=== PATIENT | male | born 1980 | race Caucasian/White ===

== ENCOUNTER → 2020-10-11 16:12 | Outpatient (BNVA) | payer OTHER, SELFPAY | PROVIDERS: Family Provider Family Medicine; Visit Provider Surgery | DX: K64.9 Unspecified hemorrhoids (principal); Z86.010 Personal history of colon polyps | CPT/HCPCS: 87635 ==

== ENCOUNTER 2020-10-15 05:43 | Day surgery (SDC) | payer OTHER, SELFPAY ==
[2020-10-12 11:54] VITALS: BMI 33.5
[2020-10-15 06:27] VITALS: BP 90/63; PULSE 71; RESP 18; TEMP 36.5; O2SAT 97
[2020-10-15] MEDS: sodium chloride 0.9% 1,000 ML 30 ML IV (06:46)
--- NOTE | 2020-10-15 06:50 | ANES.PREANE2 ---
Pre-Anesthetic Assessment Pre-Anesthetic Assessment: Height/Weight: Height 1.8 m Weight 108.862 kg Temp Pulse Resp BP Pulse Ox 97.7 F 71 18 90/63 97 10/15/20 06:27 10/15/20 06:27 10/15/20 06:27 10/15/20 06:27 10/15/20 06:27 Preop Diagnosis: diagnostic Proposed Procedure: Operation Date: 10/15/20 07:00 Proposed Procedures p Colonoscopy [id number] Z86.010 K64.9(Not Applicable) - Parker Maza MD s Hemorroidectomy(Not Applicable) - Parker Maza MD s Perirectal Abscess Excision(Not Applicable) - Parker Maza MD Familial anesthetic complications: NOne Was Beta Jamarcus taken within 24 hours: Yes Last intake: Intake Last Liquid Date 10/15/20 Last Liquid Time 22:00 Last Solid Date 10/14/20 Last Solid Time 08:30 Social: Social History: No alcohol and No tobacco Exam: Pre-Anes Outpt Exam: alert, oriented x 3, clear to auscultation bilaterally and regular rate & rhythm Airway: Cervical ROM: WNL MP: 3 Dentition: Full Pulmonary: Pulmonary: Sleep apnea CV/HEM: CV/HEM: Afib and CHF Comments: EF 35% 1 month ago Pacer/ICD Hx Mural thrombus No anticoagulation, watchman in place Anesthetic Plan: ASA status: 4 Anesthesia: MAC Risk of > 500 ml blood loss (7ml/kg in children): No Meds/Allergies Current Medications: Current Medications Generic Name Dose Route Start Last Admin Trade Name Freq PRN Reason Stop Dose Admin Sodium Chloride 1,000 mls @ 30 ml s/hr 10/15/20 06:15 10/15/20 06:46 Sodium Chloride 0.9% IV 10/16/20 06:14 30 mls/hr .Q24H KIM Administration PFSH Anesthesia PFSH: Medical History (Updated 10/05/20 @ 18:14 by Parker Maza MD) A-fib Anxiety CHF (congestive heart failure) Colon polyps Gout Hemorrhoids History of pacemaker Mural thrombus of heart Sleep apnea Surgical History (Updated 10/05/20 @ 10:36 by Parker Maza MD) History of colonoscopy with polypectomy (~2014) History of esophagogastroduodenoscopy (EGD) (~2014) History of nasal septoplasty (~2007) ICD (implantable cardioverter-defibrillator) in place (~2016) S/P laparoscopic sleeve gastrectomy (~2016) Family History (Updated 10/05/20 @ 10:15 by Yani Soriano RN) Denies family history of Anesthesia complication Bleeding disorder Data Anesthesia Cardiac Studies: No Data to Display
--- NOTE | 2020-10-15 07:40 | W.PM.OPSUD ---
Surgery/Procedure H&P Update DATE OF PROCEDURE: October 15, 2020 DATE H&P PERFORMED: 10/05/20 H&P UPDATE INFORMATION: I have reviewed H&P completed within last 30 days, I have examined patient prior to procedure and No changes to prior documentation PREOP DIAGNOSIS: diagnostic PLANNED PROCEDURE: Operation Date: 10/15/20 07:00 Proposed Procedures p Colonoscopy [id number] Z86.010 K64.9(Not Applicable) - Parker Maza MD s Hemorroidectomy(Not Applicable) - Parker Maza MD s Perirectal Abscess Excision(Not Applicable) - Parker Maza MD
[2020-10-15] MEDS: lidocaine 1% INJ 20 mL 10 ML INJECTION (08:42)
[2020-10-15 09:04] VITALS: BP 87/56; PULSE 65; RESP 16; TEMP 37.1; O2SAT 100
--- NOTE | 2020-10-15 09:05 | PM.OP ---
Operative Report Date of procedure: October 15, 2020 Pre-op Diagnosis: 1. History of colon polyps Pre-op Diagnosis: 2. Perianal mass 3. Hemorrhoids Post-op Diagnosis: 1. Normal colonoscopy 2. perianal cyst with draining sinus 3. Irritated grade 2 hemorrhoids Procedure Done: Colonoscopy past splenic flexure without biopsy Banding of hemorrhoid Excision of perianal cyst Procedure: The patient was taken to the operating room and placed in left lateral position under MAC a digital rectal exam revealed a small internal hemorrhoids. The colonoscope was introduced and advanced up to cecum with ileocecal valve and appendicular orifice was visualized. The colon prep was fair. Cecum: Normal Ascending colon: Normal Transverse colon: Normal Descending colon: Normal Sigmoid colon: Normal Rectum: Perianal cyst posterior location The colonoscope was withdrawn. The perianal area was prepped and draped in a sterile manner and the anoscope was introduced and a grade 2 hemorrhoid on the left lateral location was banded with the band applicator above the dentate line. Using a 15 blade, an elliptical incision was made around the perianal cyst which drained through a sinus opening in the posterior location, using electrocautery the subcutaneous tissue was divided there was significant inflammation and chronic scarring noted. The cyst was excised completely incorporating the opening of the draining sinus. Wound was irrigated with saline and interrupted 2-0 chromic sutures were placed. An Adaptic gauze was placed in the anal canal and the patient was transferred to recovery room in stable condition.
[2020-10-15 09:30] VITALS: BP 79/54; PULSE 71; RESP 18; O2SAT 98
[2020-10-15 09:52] VITALS: BP 79/53
[2020-10-15] MEDS: HYDROcodone-acetaminophen 5-325 mg Tablet 1 TAB PO (10:00)
[2020-10-15 10:04] VITALS: BP 86/48
--- NOTE | 2020-10-15 15:55 | ANE.PACU2 ---
Inpatient post-anesthesia follow up: Airway intact: Yes Vital signs: Temperature 98.7 F Pulse Rate 71 Respiratory Rate 18 Blood Pressure 86/48 Pulse Oximetry 98 Oxygen Delivery Me thod Room Air Oxygen Flow Rate 6 Fraction of Inspir ed Oxygen Hydration adequate: Yes Nausea and vomiting: No Pain level: 2 Mental status: Baseline
== END 2020-10-15 10:15 | disposition home or self-care (01) ==
PROVIDERS: PCP Family Medicine; Visit Provider Surgery
PROC: 0DJD8ZZ Inspection of Lower Intestinal Tract, Via Natural or Artificial Opening Endoscopic (ICD-10-PCS; CPT 45378; principal; 2020-10-15 07:00)
PROC: (CPT 45378; 2020-10-15 07:00)
PROC: (CPT 46040; 2020-10-15 07:00)
DX: Z86.010 Personal history of colon polyps (principal); K64.1 Second degree hemorrhoids; K62.89 Other specified diseases of anus and rectum; G47.30 Sleep apnea, unspecified; I48.91 Unspecified atrial fibrillation; I50.9 Heart failure, unspecified; F41.9 Anxiety disorder, unspecified; Z95.0 Presence of cardiac pacemaker; Z79.82 Long term (current) use of aspirin
CPT/HCPCS: 45378; 46221; 46922; 88304; C9290; J2704; J3010; J3490; J7030

== ENCOUNTER 2023-05-28 08:46 | Emergency (ER) | payer MEDICAID, SELFPAY ==
[2023-05-28 08:52] VITALS: BP 123/80; PULSE 80; RESP 16; TEMP 36.8; O2SAT 98; BMI 36.2
--- NOTE | 2023-05-28 09:17 | PC.PHAR ---
pt states he takes care of his own meds-pt fills medications at [facility] wp-ext med history didnt show [facility]-pt states he takes the medications entered-pt states he finished prednisone 20mg take 2 tabs daily for 5 days pt states finished 05/26/23-pt states only taking the medications entered notes are made in the pharmacy comments
[2023-05-28] MEDS: dexamethasone 10 mg/mL INJ IM (09:26)
[2023-05-28] MEDS: ketorolac 60 mg/2 mL INJ IM (09:28)
[2023-05-28] MEDS: orphenadrine 30 mg/mL Inj 2 mL 60 MG IM (09:30)
--- NOTE | 2023-05-28 10:04 | W.ED.BACK ---
HPI - Back Pain/Injury General: Chief Complaint: Back Pain/Injury Stated Complaint: back pain Time Seen by Provider: 05/28/23 08:58 Source: patient Mode of arrival: ambulatory History of Present Illness: 43 yo male presents complaining of back pain. Patient fell 2 weeks ago hit his right lower back he still having discomfort and he feels there is some swelling present. He was seen by his primary care doctor had x-rays done. No acute fracture on the x-ray presents here today with x-ray report in hand. He states he is advised if his symptoms do not improve to return to be seen in the emergency room. He had no saddle paresthesias no fecal incontinence or urinary retention. No subsequent injuries since the previous x-ray was taken. X-ray is in our synapse system and was reviewed today. MD elicited complaint: back pain Pertinent past history: prior back pain and recent trauma Onset (ago): week(s) (2) Timing: intermittent Severity: mild Quality: aching Location: left lower back Exacerbating factors: none Relieving factors: none Associated symptoms: Deny abdominal pain, arthralgias, chills, change in bowel habits, difficulty walking, dysuria, fatigue, fecal incontinence, fever(s), hematuria, myalgias, nausea, numbness, syncope, tingling/numbness/burning, urinary frequency, urinary urgency, vomiting or weakness Treatments prior to arrival: other medications Work related injury: No Review of Systems Const: Denies: fever(s), chills or fatigue Card: Denies: syncope Resp: Denies: dyspnea GI: Denies: abdominal pain, nausea, vomiting, fecal incontinence or change in bowel habits : Denies: flank pain, dysuria, urinary frequency, urinary urgency or hematuria Musc: Reports: back pain; Denies: extremity pain Neuro: Denies: difficulty walking PFS ED PFSH: Medical History A-fib Anxiety Biventricular heart failure Cardiomyopathy Most recent transesophageal echocardiogram on 12/31/2020-moderate LV dysfunction with moderate MR and mild TR. Moderate left knee enlargement. MRI and LGE suggestive of infiltrative cardiomyopathy. Biopsy negative for sarcoidosis, amyloid and genetic testing CHF (congestive heart failure) Colon polyps Gout Hemorrhoids History of pacemaker Hyperlipidemia Hypertension Insomnia Mural thrombus of heart Obesity CROW (obstructive sleep apnea) Has hypoglossal nerve stimulator HGNS Presence of Watchman left atrial appendage closure device Sleep apnea Surgical History History of colonoscopy with polypectomy (10/15/20) 2015 With banding of hemorrhoids History of epidermal inclusion cyst excision (10/15/20) Perianal History of esophagogastroduodenoscopy (EGD) (~2014) History of nasal septoplasty (~2007) Hx of gastric bypass ICD (implantable cardioverter-defibrillator) in place (~2016) Patient has [employer] MRI XT DR ICD. It is programmed for AAI/DDD S/P laparoscopic sleeve gastrectomy (~2016) Family History Father Diabetes Hypertension Cancer Mother Cancer Denies family history of CAD (coronary artery disease) Clotting disorder Dementia Chronic kidney disease (CKD) Suicide Anesthesia complication Bleeding disorder Lung disease Stroke Social History Smoking and tobacco status: never smoked Alcohol intake: never Substance/Drug Use: never Physical Exam Const: GENERAL APPEARANCE: cooperative and comfortable ORIENTATION/CONSCIOUSNESS: Yes awake, Yes oriented to person, Yes oriented to place and Yes oriented to time HENMT: COMMON NORMALS: normocephalic, atraumatic and hearing grossly normal bilaterally HEAD & SCALP: normocephalic and atraumatic Back/Pelvis: OTHER: Patellar tendon reflexes plus 2 out of 4. Dorsum plantar flexion strength is 5 of 5 straight leg raising test is negative sensation lower extremities unremarkable no saddle paresthesias. Extremity: COMMON NORMALS: normal to inspection, capillary refill normal, no clubbing, cyanosis or edema, no calf tenderness and no pedal edema Neuro: SENSORIUM/ORIENTATION: Yes oriented to person, Yes oriented to place and Yes oriented to time Skin: COMMON NORMALS: no rashes or lesions noted GENERAL SKIN EXAM: no rashes or lesions noted Course Vital Signs: Vital signs: Vital Signs Temperature 98.3 F 05/28/23 08:52 Pulse Rate 80 05/28/23 08:52 Respiratory Rate 16 05/28/23 08:52 Blood Pressure 123/80 05/28/23 08:52 Pulse Oximetry 98 05/28/23 08:52 Oxygen Delivery Dc thod Room Air 05/28/23 08:52 MDM - Back Pain/Injury Medical Decision Making Soft tissue injury patient relates that he feels like there is a sensation of swelling in the left lower back he refers to an area over the posterior superior iliac crest there is no ecchymosis maybe a slight bit of tissue fullness no induration. He has previously had x-rays he had the report and hand with him which were negative. Soft tissue steroid taper anti-inflammatories follow-up with primary care return if worsens. Medical Records I reviewed the patient's medical records. Labs I reviewed the patient's lab results. No radiology studies performed this visit Discharge Plan Discharge Patient Disposition: Home Clinical Impression: Strain of lumbar region Condition: Stable Prescriptions: New tizanidine 4 mg tablet 4 mg PO Q6H PRN (Reason: muscle spasticity) Qty: 20 0RF Rx Instructions: do not exceed 3 doses per 24 hrs prednisone 20 mg tablet 20 mg PO TID Qty: 15 0RF Rx Instructions: 1 p.o. 3 times daily x3 days, 1 p.o. twice daily x2 days, 1 p.o. daily x2 days diclofenac sodium 75 mg tablet,delayed release (DR/EC) 75 mg PO Q12H PRN (Reason: pain) Qty: 20 0RF No Action zolpidem [Ambien] 10 mg tablet 10 mg PO BEDTIME finasteride 5 mg tablet 5 mg PO DAILY febuxostat [Uloric] 40 mg tablet 40 mg PO QAM diazepam 5 mg tablet 5 mg PO DAILY PRN (Reason: Anxiety) potassium chloride 20 mEq tablet extended release 40 meq PO BID mecobalamin (vitamin B12) 1,000 mcg tablet,chewable 1,000 mcg PO DAILY torsemide 20 mg tablet 40 mg PO BID aspirin 325 mg tablet 325 mg PO BEDTIME spironolactone 25 mg tablet 25 mg PO QAM metoprolol succinate 50 mg Tablet Extended Release 24 Hr 75 mg PO BID tadalafil 5 mg Tablet 10 mg PO DAILY PRN (Reason: Erectile Dysfunction) cholecalciferol (vitamin D3) 1,250 mcg (50,000 unit) capsule 50,000 unit PO Q7D Rx Instructions: on thursday Entresto 24-26 mg tablet 1 tab PO BID multivitamin Tablet 1 tab PO DAILY doxycycline hyclate 100 mg Capsule 100 mg PO BID Rx Instructions: for 10 days (rx filled 05/21/23) albuterol sulfate 90 mcg/actuation Hfa Aerosol Inhaler 2 puff INHALATION QID PRN (Reason: Shortness Of Breath) Flonase 50 mcg/actuation [place],Suspension 1 - 2 spray INTRANASAL DAILY PRN (Reason: Allergy Symptoms) Rx Instructions: administer into each nostril Farxiga 10 mg Tablet 10 mg PO QAM Discharge Orders: Discharge ED (Routine); Ordered 05/28/23 Ordered By: Eulogio Galan Referrals: Timmy Trent MD [Primary Care Provider] - Discharge Diet: Usual diet Discharge Activity: Increase activity as tolerated Patient Instructions: Back Pain (ED), Opioid Safety, Pain Management Activity Restrictions/Additional Instructions: If symptoms persist follow-up with your primary care doctor. Coding Level of Care Code ED Surgical Oncologist for Barbara Khan
== END 2023-05-28 09:51 | disposition home or self-care (01) ==
PROVIDERS: Emergency Provider Family Medicine; PCP Family Medicine
DX: S39.012A Strain of muscle, fascia and tendon of lower back, initial encounter (principal); Z79.82 Long term (current) use of aspirin; I11.0 Hypertensive heart disease with heart failure; I50.9 Heart failure, unspecified; Z95.0 Presence of cardiac pacemaker; E78.5 Hyperlipidemia, unspecified; W19.XXXA Unspecified fall, initial encounter
CPT/HCPCS: 96372; 99284; J1100; J1885; J2360

== ENCOUNTER 2023-07-03 09:26 | Emergency (ER) | payer MEDICAID, SELFPAY ==
--- NOTE | 2023-07-03 09:42 | XRR_ITS ---
PROCEDURE INFORMATION: Exam: XR Lumbosacral Spine Exam date and time: 07/03/2023 9:56 AM Age: 43 years old Clinical indication: Injury or trauma; Fall; Blunt trauma (contusions or hematomas); Prior surgery; Surgery date: 6+ months; Surgery type: Not specified TECHNIQUE: Imaging protocol: Radiologic exam of the lumbosacral spine. Views: 2 or 3 views. COMPARISON: CR XR lumbar spine min 4V [id number] 04/21/2023 1:56 PM FINDINGS: Bones/joints: Grade 2 anterolisthesis of L5 in respect S1. There is anterior subluxation of 16 mm. Mild degenerative endplate change at L1/2 level. Soft tissues: Unremarkable. XR/XR lumbar spine 2-3V* [id number] IMPRESSION: 1. Grade 2 anterolisthesis of L5 in respect S1. There is anterior subluxation of 16 mm. 2. Mild degenerative endplate change of the L1/2 level
[2023-07-03 10:03] VITALS: PULSE 93; RESP 15; TEMP 36.6; O2SAT 100; BMI 36.2
--- NOTE | 2023-07-03 10:09 | ED_ITS ---
HPI - Back Pain/Injury General: Chief Complaint: Back Pain/Injury Stated Complaint: fall, lower back pain Time Seen by Provider: 07/03/23 09:28 Source: patient Mode of arrival: ambulatory History of Present Illness: 43-year-old male presents emergency room complaining of back pain. He was seen a couple weeks ago 8 falling off the edge of a porch he had plain x-rays done before you arrived at that visit x-ray showed spondylolisthesis spondylolysis. Patient was given muscle relaxers NSAIDs and steroid taper followed up with his doctor he had been improving mildly they did not feel any further advanced imaging was warranted. Patient now is returning stating is having worsening back pain again reports having fallen off of a ladder recently did not strike his head no loss consciousness. He has no saddle paresthesias no fecal incontinence or urinary retention he is having some radiation of discomfort into the upper thighs bilaterally. MD elicited complaint: back pain Pertinent past history: prior back pain and recent trauma Onset (ago): week(s) Timing: constant Severity: moderate Quality: sharp and spasming Radiation: left upper leg and right upper leg Exacerbating factors: sitting upright Associated symptoms: Deny abdominal pain, arthralgias, chills, change in bowel habits, difficulty walking, dysuria, fatigue, fecal incontinence, fever(s), hematuria, myalgias, nausea, numbness, syncope, tingling/numbness/burning, urinary frequency, urinary urgency, vomiting or weakness Review of Systems Const: Denies: fever(s), chills or fatigue Card: Denies: chest pain or syncope Resp: Denies: dyspnea, productive cough or wheezing GI: Denies: abdominal pain, nausea, vomiting, fecal incontinence or change in bowel habits : Denies: flank pain, dysuria, urinary frequency, urinary urgency or hematuria Musc: Denies: neck pain or back pain Neuro: Denies: difficulty walking PFSH ED PFSH: Medical History A-fib Anxiety Biventricular heart failure Cardiomyopathy Most recent transesophageal echocardiogram on 12/31/2020-moderate LV dysfunction with moderate MR and mild TR. Moderate left knee enlargement. MRI and LGE suggestive of infiltrative cardiomyopathy. Biopsy negative for sarcoidosis, amyloid and genetic testing CHF (congestive heart failure) Colon polyps Gout Hemorrhoids History of pacemaker Hyperlipidemia Hypertension Insomnia Mural thrombus of heart Obesity CROW (obstructive sleep apnea) Has hypoglossal nerve stimulator HGNS Presence of Watchman left atrial appendage closure device Sleep apnea Surgical History History of colonoscopy with polypectomy (10/15/20) 2015 With banding of hemorrhoids History of epidermal inclusion cyst excision (10/15/20) Perianal History of esophagogastroduodenoscopy (EGD) (~2014) History of nasal septoplasty (~2007) Hx of gastric bypass ICD (implantable cardioverter-defibrillator) in place (~2016) Patient has [employer] MRI XT DR ICD. It is programmed for AAI/DDD S/P laparoscopic sleeve gastrectomy (~2016) Family History Father Diabetes Hypertension Cancer Mother Cancer Denies family history of CAD (coronary artery disease) Clotting disorder Dementia Chronic kidney disease (CKD) Suicide Anesthesia complication Bleeding disorder Lung disease Stroke Social History Smoking and tobacco/nicotine status: never used tobacco/nicotine Alcohol intake: never Substance/Drug Use: never Physical Exam Const: COMMON NORMALS: no acute distress GENERAL APPEARANCE: cooperative and comfortable ORIENTATION/CONSCIOUSNESS: Yes awake, Yes oriented to person, Yes oriented to place and Yes oriented to time HENMT: COMMON NORMALS: normocephalic, atraumatic and hearing grossly normal bilaterally HEAD & SCALP: normocephalic and atraumatic Resp: COMMON NORMALS: normal respiratory effort, No retractions, No use of accessory muscles and clear to auscultation bilaterally AUSCULTATION: clear to auscultation bilaterally Cardio: COMMON NORMALS: regular rate, regular rhythm and No murmurs present (Cardio) RATE: regular rate RHYTHM: regular rhythm GI: COMMON NORMALS: Soft to palpation and No hepatosplenomegaly present AUSCULTATION: Yes normoactive bowel sounds PALPATION: Yes Soft to palpation, No Tenderness to palpation present (GI), No Guarding due to palpation present (GI) and Yes No hepatosplenomegaly present Extremity: COMMON NORMALS: normal to inspection, capillary refill normal, no clubbing, cyanosis or edema, no calf tenderness and no pedal edema OTHER: Straight leg raising bilaterally positive for proximal thigh pain. Deep tendon reflexes difficult to elicit at the patellar tendon dorsum plantarflexion 5 of 5 sensation normal. Neuro: SENSORIUM/ORIENTATION: Yes oriented to person, Yes oriented to place and Yes oriented to time Skin: COMMON NORMALS: no rashes or lesions noted GENERAL SKIN EXAM: no rashes or lesions noted Course Vital Signs: Vital signs: Vital Signs Temperature 97.9 F 07/03/23 10:03 Pulse Rate 93 07/03/23 10:03 Respiratory Rate 15 07/03/23 10:03 Pulse Oximetry 100 07/03/23 10:03 Oxygen Delivery Me thod Room Air 07/03/23 10:03 MDM - Back Pain/Injury Medical Decision Making Plain films show spinal a spinal listhesis L5 on [place] 1. No acute fracture. Discharge home with steroid taper anti-inflammatories muscle relaxers Medical Records I reviewed the patient's medical records. Labs I reviewed the patient's lab results. Radiology Impressions Lumbar Spine X-Ray 07/03/23 09:42 IMPRESSION: 1. Grade 2 anterolisthesis of L5 in respect S1. There is anterior subluxation of 16 mm. 2. Mild degenerative endplate change of the L1/2 level All radiology interpretation(s) finalized by discharge Discharge Plan Discharge Patient Disposition: Home Clinical Impression: Spondylolysis with spondylolisthesis, Chronic back pain Condition: Stable Prescriptions: New tizanidine 4 mg tablet 4 mg PO Q6H PRN (Reason: muscle spasticity) Qty: 20 0RF Rx Instructions: do not exceed 3 doses per 24 hrs prednisone 20 mg tablet 20 mg PO TID Qty: 15 0RF Rx Instructions: 1 p.o. 3 times daily x3 days, 1 p.o. twice daily x2 days, 1 p.o. daily x2 days diclofenac sodium 75 mg tablet,delayed release (DR/EC) 75 mg PO Q12H PRN (Reason: pain) Qty: 20 0RF Discontinued tizanidine 4 mg tablet 4 mg PO Q6H PRN (Reason: muscle spasticity) Qty: 20 0RF Rx Instructions: do not exceed 3 doses per 24 hrs prednisone 20 mg tablet 20 mg PO TID Qty: 15 0RF Rx Instructions: 1 p.o. 3 times daily x3 days, 1 p.o. twice daily x2 days, 1 p.o. daily x2 days diclofenac sodium 75 mg tablet,delayed release (DR/EC) 75 mg PO Q12H PRN (Reason: pain) Qty: 20 0RF No Action zolpidem [Ambien] 10 mg tablet 10 mg PO BEDTIME finasteride 5 mg tablet 5 mg PO DAILY febuxostat [Uloric] 40 mg tablet 40 mg PO QAM diazepam 5 mg tablet 5 mg PO DAILY PRN (Reason: Anxiety) potassium chloride 20 mEq tablet extended release 40 meq PO BID mecobalamin (vitamin B12) 1,000 mcg tablet,chewable 1,000 mcg PO DAILY torsemide 20 mg tablet 40 mg PO BID aspirin 325 mg tablet 325 mg PO BEDTIME spironolactone 25 mg tablet 25 mg PO QAM metoprolol succinate 50 mg Tablet Extended Release 24 Hr 75 mg PO BID tadalafil 5 mg Tablet 10 mg PO DAILY PRN (Reason: Erectile Dysfunction) cholecalciferol (vitamin D3) 1,250 mcg (50,000 unit) capsule 50,000 unit PO Q7D Rx Instructions: on thursday Entresto 24-26 mg tablet 1 tab PO BID multivitamin Tablet 1 tab PO DAILY fluticasone propionate [Flonase] 50 mcg/actuation [place],Suspension 1 - 2 spray INTRANASAL DAILY PRN (Reason: Allergy Symptoms) Rx Instructions: administer into each nostril Farxiga 10 mg Tablet 10 mg PO QAM Discharge Orders: Discharge ED (Routine); Ordered 07/03/23 Ordered By: Eulogio Galan Referrals: Timmy Trent MD [Primary Care Provider] - Patient Instructions: Opioid Safety, Pain Management Coding Level of Care Code ED Auto Inspection Specialist for Barbara Khan
[2023-07-03] MEDS: ketorolac 60 mg/2 mL INJ IM (10:43)
[2023-07-03] MEDS: dexamethasone 10 mg/mL INJ IM (10:44)
[2023-07-03] MEDS: orphenadrine 30 mg/mL Inj 2 mL 60 MG IM (10:45)
== END 2023-07-03 11:01 | disposition home or self-care (01) ==
PROVIDERS: Emergency Provider Family Medicine; PCP Family Medicine
DX: M47.816 Spondylosis without myelopathy or radiculopathy, lumbar region (principal); M43.16 Spondylolisthesis, lumbar region; G89.29 Other chronic pain; Z79.82 Long term (current) use of aspirin; I11.0 Hypertensive heart disease with heart failure; I50.9 Heart failure, unspecified; E78.5 Hyperlipidemia, unspecified; Z95.0 Presence of cardiac pacemaker
CPT/HCPCS: 72100; 96372; 99284; J1100; J1885; J2360

== ENCOUNTER 2023-11-03 15:31 | Inpatient (IN) | payer MEDICAID, SELFPAY ==
[2023-11-03 15:42] VITALS: BMI 36.8
--- NOTE | 2023-11-03 17:27 | P.HP_ITS ---
Providers/Chief Complaint 2 Admitting Physician: Alfredo Carroll MD Primary Care Provider: Timmy Trent MD Chief Complaint: 254 - 2 History of Present Illness Dexter Dempsey is a 43 year old male with a history of nonischemic cardiomyopathy, chronic systolic heart failure, chronic intermittent atrial fibrillation, he is being followed by Dr. Mathews at [facility] in [place] for his arrhythmia. This patient apparently had multiple intervention for the atrial fibrillation. He had multiple electrical cardioversions and trial with multiple antiarrhythmics. Most recently in 2021, he underwent hybrid ablation at the [facility] in [place]. He was taken off the of the antiarrhythmic drugs. According to the patient, he did okay for a year or so. He went back into atrial fibrillation again. So he was advised to try the sotalol again for the control of the arrhythmia. Because of the possibility of proarrhythmia, he was advised for in the hospital initiation of the medication. As per patient's request, he is admitted to our hospital for the initiation of this medication. This patient is diagnosed with a infiltrative cardiomyopathy. The most recent LV ejection fraction was around 20%, as per the patient. He is on GDMT for the heart failure. His baseline BNP is around 1200. He has the dual-chamber ICD. He has a history of left atrial appendage thrombus and easy bruising. He underwent the Watchman procedure in 2018. He was tried on amiodarone, sotalol and Tikosyn in the past. According to the patient, he was arrhythmia free for the longest duration with the sotalol. He also is known to have sleep apnea and has a hypoglossal nerve stimulator in place. Seems to be doing okay with this. He denies any chest pain or chest tightness. No unusual shortness of breath. No significant leg swelling. Overall functional status has been fairly stable. His pacemaker is programmed for AAI/DDD, 60/140. Review of Systems 2 Narrative: CONSTITUTIONAL: No fever or chills. EYES: No blurring of vision or other visual disturbances lately. ENT: No hoarseness of voice, auditory disturbances or sore throat. CARDIOVASCULAR: As mentioned above. RESPIRATORY: History of obstructive sleep apnea as mentioned above GASTROINTESTINAL: No hematemesis or melena. GENITOURINARY: No dysuria or hematuria. INTEGUMENTARY: No skin rashes or history of skin cancer. NEURO: No transient ischemic attacks or amaurosis. PSYCHIATRIC: No history of psychosis or major depression. HEMATOLOGIC: No bleeding disorders or significant anemia. ENDOCRINE: No history of polyuria or polydipsia. MUSCULOSKELETAL: No recent joint pain or swelling. ALLERGY/IMMUNOLOGY: As mentioned above. Medications/Allergies Home Medications Medication Instructions Recorded Confirmed Last Taken Type aspirin 325 mg tablet 325 mg PO BEDTIME 10/05/20 11/03/23 11/02/23 18:00 History diazepam 5 mg tablet 5 mg PO DAILY PRN Anxiety 10/05/20 11/03/23 11/02/23 14:00 History febuxostat 40 mg tablet (Uloric) 40 mg PO QAM 10/05/20 11/03/23 11/02/23 08:00 History finasteride 5 mg tablet 5 mg PO DAILY 10/05/20 11/03/23 11/02/23 08:00 History potassium chloride 20 mEq 40 meq PO BID 10/05/20 11/03/23 11/03/23 08:00 History tablet,extended release torsemide 20 mg tablet 40 mg PO BID 10/05/20 11/03/23 11/03/23 08:00 History zolpidem 10 mg tablet (Ambien) 10 mg PO BEDTIME 10/05/20 11/03/23 11/02/23 22:00 History spironolactone 25 mg tablet 25 mg PO QAM 05/13/21 11/03/23 11/03/23 08:00 History cholecalciferol (vitamin D3) 1,250 50,000 unit PO Q7D 05/28/23 11/03/23 10/26/23 18:00 History mcg (50,000 unit) capsule dapagliflozin propanediol 10 mg 10 mg PO QAM 05/28/23 11/04/23 11/03/23 08:00 History tablet (Farxiga) metoprolol succinate 50 mg 100 mg PO BID 05/28/23 11/03/23 11/02/23 18:00 History tablet,extended release 24 hr 100 multivitamin 1 tab PO DAILY 05/28/23 11/03/23 11/02/23 18:00 History sacubitril 24 mg-valsartan 26 mg 1 tab PO BID 09/11/03/23 11/02/23 08:00 History tablet (Entresto) tadalafil 5 mg tablet 10 mg PO DAILY PRN Erectile 05/28/23 11/03/23 Unknown History Dysfunction prednisone 20 mg tablet 20 mg PO TID #15 tabs 07/03/23 11/03/23 Unknown Rx topiramate 50 mg tablet 50 mg PO BID pain 30 days #60 tabs 09/29/23 11/03/23 11/02/23 18:00 Rx tizanidine 4 mg tablet 4 mg PO BID PRN muscle spasticity 10/19/23 11/03/23 11/02/23 18:00 Rx #60 tabs gabapentin 600 mg tablet 600 mg PO TID pain #90 tabs 10/22/23 11/03/23 11/02/23 18:00 Rx ibuprofen 600 mg PO BEDTIME 11/03/23 11/03/23 11/02/23 18:00 History Allergies Allergy/AdvReac Type Severity Reaction Status Date / Time No Known Allergies Allergy Verified 09/15/23 09:47 PFSH Acute 2 PFSH: Medical History Insomnia Presence of Watchman left atrial appendage closure device Hypertension Obesity Hyperlipidemia CROW (obstructive sleep apnea) Has hypoglossal nerve stimulator HGNS Cardiomyopathy Most recent transesophageal echocardiogram on 12/31/2020-moderate LV dysfunction with moderate MR and mild TR. Moderate left knee enlargement. MRI and LGE suggestive of infiltrative cardiomyopathy. Biopsy negative for sarcoidosis, amyloid and genetic testing Biventricular heart failure Colon polyps Hemorrhoids Mural thrombus of heart History of pacemaker A-fib Anxiety CHF (congestive heart failure) Sleep apnea Gout Surgical History Hx of gastric bypass History of epidermal inclusion cyst excision (10/15/20) Perianal ICD (implantable cardioverter-defibrillator) in place (~2016) Patient has Peg MARCH XT ICD. It is programmed for AAI/DDD History of nasal septoplasty (~2007) S/P laparoscopic sleeve gastrectomy (~2016) History of colonoscopy with polypectomy (10/15/20) 2015 With banding of hemorrhoids History of esophagogastroduodenoscopy (EGD) (~2014) Family History Father Diabetes Hypertension Cancer Mother Cancer Denies family history of CAD (coronary artery disease) Clotting disorder Dementia Chronic kidney disease (CKD) Suicide Anesthesia complication Bleeding disorder Lung disease Stroke Social History Smoking and tobacco/nicotine status: never used tobacco/nicotine Alcohol intake: never Substance/Drug Use: never Vitals/I&O/Wt Last Vital Signs O2 Del Method Room Air 11/03/23 15:42 Weight last 48 hrs Weight 264 lb 1.6 oz Physical Exam 2 Narrative: GENERAL: The patient is alert and oriented times three. Not in any acute distress. HEENT: No significant pallor, icterus or lymphadenopathy.Oral cavity: There are no mucous membrane lesions. NECK: Trachea appears to be central. No masses noted. No JVD or thyromegaly appreciated. RESPIRATORY: Chest is symmetrical. No intercostals muscle retraction or any accessory muscle activation. There is no chest wall tenderness. Breath sounds are heard bilaterally. No rales or rhonchi heard. No evidence of any consolidation. BREASTS: Deferred. HEART: The heart sounds are normal. No S3 or S4. No significant murmurs. No pericardial rub ABDOMEN: No vessel pulsations or distention. No tenderness. No organomegaly appreciated. Bowel sounds are normally heard. : Deferred. RECTAL: Deferred. LYMPHATIC: No lymphadenopathy noted in the neck. EXTREMITIES: No edema or cyanosis. No clubbing. MUSCULOSKELETAL: No acute joint deformities or swelling SKIN: There are no significant rashes or ecchymosis NEUROPSYCHIATRIC: The patient is alert and oriented x3. Appears to be in a good mood. No tremors or rigidity noted. Data 11/03/23 18:50 11/03/23 18:50 EKG 1: My Interpretation: Demand A paced V sensed rhythm. Occasional PVCs. Nonspecific T wave changes. QTc of 451. A&P Assessment and plan (1) Intermittent atrial fibrillation: Patient currently appears to be in a regular rhythm. I may start him on a Betapace 80 mg p.o. twice daily. Will be watching the telemetry closely. Will do a baseline EKG. Will be monitoring the QTc, by daily EKG x 3 We also may go out and do some baseline labs including CBC, CMP, TSH and BNP (2) ICD (implantable cardioverter-defibrillator) in place: The ICD function seems appropriate. Will continue on the current management. (3) Presence of Watchman left atrial appendage closure device: Patient has not had any thromboembolic events in the recent past. (4) Nonischemic congestive cardiomyopathy: Patient is on the Entresto 24/26 once twice daily. Apparently he could not tolerate the higher dose. He may continue on the current dose of this medication. (5) Chronic systolic (congestive) heart failure: Clinically appears to be decompensated. We may go ahead and do a baseline BNP. (6) CROW (obstructive sleep apnea): Continue on the current management. Plan Based on the results and the patient clinical progress, further management decisions will be made. We will be closely monitoring on telemetry and also with the daily EKG. Attestations 2 Medical Necessity Statement*: Patient requires continued hospital stay for close monitoring -for development of any malignant arrhythmias Coding Level of Care Code Acute Code for g Fwd Diagnoses Intermittent atrial fibrillation I48.0 ICD (implantable cardioverter-defibrillator) in place Z95.810 Presence of Watchman left atrial appendage closure device Z95.818 Nonischemic congestive cardiomyopathy I42.0 Chronic systolic (congestive) heart failure I50.22 CROW (obstructive sleep apnea) G47.33
[2023-11-03] MEDS: potassium chloride ER 20 mEq Tablet 40 MEQ PO (18:06)
[2023-11-03] MEDS: sacubitril/valsartan 24-26 mg Tablet 1 EACH PO (18:06)
[2023-11-03] MEDS: sotalol 80 mg Tablet PO ×2 (18:06→20:54)
[2023-11-03] MEDS: enoxaparin 40 mg/0.4 mL Syringe SUBCUT (18:06)
[2023-11-03] MEDS: TORSEmide 20 mg Tablet 40 MG PO (18:06)
--- NOTE | 2023-11-03 18:27 | ECG_ITS ---
[facility] Test Date: 2023-11-03 Pat Name: Dexter Dempsey Department: Room: 254 Gender: Male Mental Health Unit Lead Psychologist: : 1980 Requested By: Alfredo Carroll Order Number: [id number] Krystina MD: Alfredo Carroll M.D. Measurements Intervals [place] Rate: 73 P: 67 PA: 183 QRS: 105 QRSD: 105 T: 111 QT: 409 QTc: 451 Interpretive Statements SINUS RHYTHM WITH OCCASIONAL VENTRICULAR PREMATURE COMPLEXES RIGHT AXIS DEVIATION [QRS AXIS > 100] LOW QRS VOLTAGE IN EXTREMITY LEADS [QRS DEFLECTION < 0.5 mV IN LIMB LEADS] PATTERN CONSISTENT WITH PULMONARY DISEASE Compared to ECG 08/14/2016 02:47:42 Ventricular premature complex(es) now present Atrial fibrillation no longer present ST (T wave) deviation no longer present Electronically Signed On 11-03-2023 18:32:17 DIRECTOR OF PUBLIC WORKS by Alfredo Carroll M.D. [email or web address].[facility]um[facility].[employer]/store/OM/[id number]
[2023-11-03 19:10] LABS: Basophils % 0.7 %; Eosinophils # 0.1 10^3/uL (0.0-0.8); Eosinophils % 3.6 %; Hematocrit 44.4 % (37-53); Lymphocytes # 1.6 10^3/uL (0.8-4.8); Lymphocytes % 58.5 %; Mean Corpuscular HGB Conc 34.2 g/dL (30-55); Mean Corpuscular Hemoglobin 29.2 pg (27-33); Mean Corpuscular Volume 85.2 fl (82-101); Mean Platelet Volume 9.8 fL (7.4-10.4); Monocytes # 0.9 10^3/uL (0.2-0.9); Monocytes % 31.3 %; Neutrophils % 5.9 %; Nucleated Red Blood Cells % 0 %; Platelet Count 143 10^3/cmm (157-399); Red Blood Count 5.21 10^6/uL (3.85-5.65); White Blood Count 2.75 10^3/uL (3.29-11.43)
[2023-11-03 19:33] LABS: Albumin Level 4.3 g/dL (3.5-5.2); Alkaline Phosphatase 75 U/L (40-130); Anion Gap 16.8 (5-19); Blood Urea Nitrogen 20 mg/dL (6-20); Calcium 8.6 mg/dL (8.5-10.5); Chloride 107 mmol/L (98-107); Creatinine Clr Calc Pharmacy 153.5464; Globulin 2.1 g/dL (1.3-4.6); Glomerular Filtration Rate 104.5 mL/min (90-130); Magnesium 2.2 mg/dL (1.7-2.3); Osmolality Calculated 295 mOsm/kg (285-295); Potassium 3.8 mmol/L (3.5-5.1); Sodium 140 mmol/L (136-145); Total Bilirubin 0.4 mg/dL (0.15-1.2)
[2023-11-03 19:42] LABS: Neutrophils # 0.16 10^3/uL (1.8-7.7)
[2023-11-03 19:50] LABS: Carbon Dioxide 20 mmol/L (22-29); Glucose 133 mg/dL (65-115); NT Pro B Type Natriuretic Pept 1762 pg/mL (0-125); Total Protein 6.4 g/dL (6.6-8.7)
[2023-11-03 19:54] LABS: Alanine Aminotransferase < 5 U/L (0-41); Aspartate Amino Transferase 5 U/L (0-40)
[2023-11-03 19:57] VITALS: BP 101/69; PULSE 70; RESP 18; TEMP 37; O2SAT 98
[2023-11-03] MEDS: metoprolol tartrate 50 mg Tablet 100 MG PO (20:54)
[2023-11-03] MEDS: zolpidem 5 mg Tablet 10 MG PO (20:54)
[2023-11-03] MEDS: aspirin 325 mg Tablet PO (20:54)
[2023-11-03 21:11] LABS: Thyroid Stimulating Hormone 1.95 uIU/mL (0.27-4.20)
--- NOTE | 2023-11-03 21:11 | PC.NURSE ---
at 2036 patient had 7 beats of vtach showing on telemetry. notified intervention analyst aviation electronic warfare operator about event. Next dose of sotalol was due in 15 minutes was told to go ahead and give medication and keep an eye on monitor for any other events
[2023-11-03 22:29] VITALS: PULSE 70
[2023-11-04] VITALS (9 sets, daily range): BP systolic 99–110; BP diastolic 50–70; PULSE 66–71; RESP 16–18; TEMP 36.6–37.1; O2SAT 95–97
[2023-11-04] MEDS: spironolactone 25 mg Tablet PO (05:56)
[2023-11-04] MEDS: potassium chloride ER 20 mEq Tablet 40 MEQ PO ×2 (08:05→17:38)
[2023-11-04] MEDS: finasteride 5 mg Tablet PO (08:05)
[2023-11-04] MEDS: TORSEmide 20 mg Tablet 40 MG PO ×2 (08:05→17:38)
[2023-11-04] MEDS: metoprolol tartrate 50 mg Tablet 100 MG PO ×2 (08:05→21:57)
[2023-11-04] MEDS: sacubitril/valsartan 24-26 mg Tablet 1 EACH PO ×2 (08:05→17:38)
[2023-11-04] MEDS: sotalol 80 mg Tablet PO ×2 (08:07→21:58)
--- NOTE | 2023-11-04 09:16 | ECG_ITS ---
[facility] Test Date: 2023-11-04 Pat Name: Dexter Dempsey Department: Room: 254 Gender: Male Manager Order: : 1980 Requested By: Alfredo Carroll Order Number: [id number] Krystina MD: Boo Page M.D. Measurements Intervals [place] Rate: 69 P: -56 AL: 252 QRS: 113 QRSD: 111 T: 215 QT: 416 QTc: 448 Interpretive Statements ELECTRONIC ATRIAL PACEMAKER PATTERN CONSISTENT WITH PULMONARY DISEASE POSSIBLE RIGHT VENTRICULAR HYPERTROPHY [SOME/ALL OF: PROMINENT R IN V1, LATE TRANSITION, RAD, SULTANA, SSS] ABNORMAL QRS-T ANGLE [QRS-T AXIS DIFFERENCE > 60] Compared to ECG 11/03/2023 18:27:24 Sinus rhythm no longer present Ventricular premature complex(es) no longer present Right-axis deviation no longer present Electronically Signed On 11-04-2023 10:58:45 ASSISTANT CONTROLLER by Boo Page M.D. [email or web address] [facility].[employer]/store/OM/[id number]
[2023-11-04] MEDS: enoxaparin 40 mg/0.4 mL Syringe SUBCUT (17:38)
--- NOTE | 2023-11-04 18:08 | P.PN_ITS ---
Subjective 2 Subjective: The patient is feeling okay. No chest pain or shortness of breath. EKG revealed QTc of 431. No new changes. Patient is on Betapace 80 mg p.o. twice daily No significant new arrhythmias on the monitor Medications: Medication Review Details: Current Medications Aspirin (Aspirin 325 Mg Tablet) 325 mg PO BEDTIME [facility] Last Admin: 11/03/23 20:54 Dose: 325 mg Enoxaparin Sodium (Enoxaparin 40 Mg/0.4 Ml Syringe) 40 mg SUBCUT Q24H [facility] Last Admin: 11/04/23 17:38 Dose: 40 mg Finasteride (Finasteride 5 Mg Tablet) 5 mg PO DAILY [facility] Last Admin: 11/04/23 08:05 Dose: 5 mg Ibuprofen (Ibuprofen 200 Mg Tablet) 400 mg PO Q6H PRN PRN Reason: Mild/Mod Pain Or Temp >/= 101 Metoprolol Tartrate (Metoprolol Tartrate 50 Mg Tablet) 100 mg PO BID@0900,2100 [facility] Last Admin: 11/04/23 08:05 Dose: 100 mg Non-Formulary Medication (Dapagliflozin Propanediol [Farxiga]) [facility] Admin: 11/04/23 05:42 Dose: Not Given Non-Formulary Medication (Febuxostat [Uloric]) [facility] [place] Last Admin: 11/04/23 05:42 Dose: Not Given Potassium Chloride (Potassium Chloride Er 20 Meq Tablet) 40 meq PO BID [facility] Last Admin: 11/04/23 17:38 Dose: 40 meq Sacubitril/Valsartan (Sacubitril/Valsartan 24-26 Mg Tablet) 1 each PO BID [facility] Last Admin: 11/04/23 17:38 Dose: 1 each Sotalol HCl (Sotalol 80 Mg Tablet) 80 mg PO BID@0900,2100 [facility] Last Admin: 11/04/23 08:07 Dose: 80 mg Spironolactone (Spironolactone 25 Mg Tablet) 25 mg PO QAM [facility] Last Admin: 11/04/23 05:56 Dose: 25 mg Torsemide (Torsemide 20 Mg Tablet) 40 mg PO BID [facility] Last Admin: 11/04/23 17:38 Dose: 40 mg Zolpidem Tartrate (Zolpidem 5 Mg Tablet) 10 mg PO BEDTIME [facility] Last Admin: 11/03/23 20:54 Dose: 10 mg Vitals/I&O/Wt Last Vital Signs Temp 98.2 F 11/04/23 16:00 Pulse 67 11/04/23 16:00 Resp 16 11/04/23 16:00 BP 107/63 11/04/23 16:00 Pulse Ox 95 11/04/23 16:00 O2 Del Method Room Air 11/04/23 16:00 11/04/23 11/04/23 11/04/23 06:59 14:59 22:59 Intake Total 480 / 1440 1080 / 1080 450 / 1530 Balance 480 / 1440 1080 / 1080 450 / 1530 Weight last 48 hrs Weight 245 lb Weight 264 lb 1.6 oz Physical Exam 2 Narrative: GENERAL: The patient is alert and oriented times three. Not in any acute distress. HEENT: No significant pallor, icterus or lymphadenopathy.Oral cavity: There are no mucous membrane lesions. NECK: Trachea appears to be central. No masses noted. No JVD or thyromegaly appreciated. RESPIRATORY: Chest is symmetrical. No intercostals muscle retraction or any accessory muscle activation. There is no chest wall tenderness. Breath sounds are heard bilaterally. No rales or rhonchi heard. No evidence of any consolidation. BREASTS: Deferred. HEART: The heart sounds are normal. No S3 or S4. No significant murmurs. No pericardial rub ABDOMEN: No vessel pulsations or distention. No tenderness. No organomegaly appreciated. Bowel sounds are normally heard. : Deferred. RECTAL: Deferred. LYMPHATIC: No lymphadenopathy noted in the neck. EXTREMITIES: No edema or cyanosis. No clubbing. MUSCULOSKELETAL: No acute joint deformities or swelling SKIN: There are no significant rashes or ecchymosis NEUROPSYCHIATRIC: The patient is alert and oriented x3. Appears to be in a good mood. No tremors or rigidity noted. Data 11/03/23 18:50 11/03/23 18:50 Other Labs: Laboratory Last Values WBC 2.75 10^3/uL (3.29-11.43) L 11/03/23 18:50 RBC 5.21 10^6/uL (3.85-5.65) 11/03/23 18:50 Hgb 15.20 g/dL (11.27-16.99) 11/03/23 18:50 Hct 44.4 % (37-53) 11/03/23 18:50 MCV 85.2 fl (82-101) 11/03/23 18:50 MCH 29.2 pg (27-33) 11/03/23 18:50 MCHC 34.2 g/dL (30-55) 11/03/23 18:50 RDW 14.0 % (12.1-15.1) 11/03/23 18:50 Plt Count 143 10^3/cmm (157-399) L 11/03/23 18:50 MPV 9.8 fL (7.4-10.4) 11/03/23 18:50 Neut % (Auto) 5.9 % 11/03/23 18:50 Lymph % (Auto) 58.5 % 11/03/23 18:50 [place] % (Auto) 31.3 % 11/03/23 18:50 Eos % (Auto) 3.6 % 11/03/23 18:50 Baso % (Auto) 0.7 % 11/03/23 18:50 Neut # (Auto) 0.16 10^3/uL (1.8-7.7) L* 11/03/23 18:50 Lymph # (Auto) 1.6 10^3/uL (0.8-4.8) 11/03/23 18:50 [place] # (Auto) 0.9 10^3/uL (0.2-0.9) 11/03/23 18:50 Eos # (Auto) 0.1 10^3/uL (0.0-0.8) 11/03/23 18:50 Baso # (Auto) 0.0 10^3/uL (0.0-0.1) 11/03/23 18:50 Nucleated RBC % (auto) 0 % 11/03/23 18:50 Nucleated RBCs # 0.0 /100WBC 11/03/23 18:50 Sodium 140 mmol/L (136-145) 11/03/23 18:50 Potassium 3.8 mmol/L (3.5-5.1) 11/03/23 18:50 Chloride 107 mmol/L (98-107) 11/03/23 18:50 Carbon Dioxide 20 mmol/L (22-29) L 11/03/23 18:50 Anion Gap 16.8 (5-19) 11/03/23 18:50 BUN 20 mg/dL (6-20) 11/03/23 18:50 Creatinine 0.8 mg/dL (0.7-1.2) 11/03/23 18:50 GFR Calculation 104.5 mL/min (90-130) 11/03/23 18:50 Glucose 133 mg/dL (65-115) H 11/03/23 18:50 Calculated Osmolality 295 mOsm/kg (285-295) 11/03/23 18:50 Calcium 8.6 mg/dL (8.5-10.5) 11/03/23 18:50 Magnesium 2.2 mg/dL (1.7-2.3) 11/03/23 18:50 Total Bilirubin 0.4 mg/dL (0.15-1.2) 11/03/23 18:50 AST 5 U/L (0-40) 11/03/23 18:50 ALT < 5 U/L (0-41) 11/03/23 18:50 Alkaline Phosphatase 75 U/L (40-130) 11/03/23 18:50 NT-Pro-B Natriuret Pep 1762 pg/mL (0-125) H 11/03/23 18:50 Total Protein 6.4 g/dL (6.6-8.7) L 11/03/23 18:50 Albumin 4.3 g/dL (3.5-5.2) 11/03/23 18:50 Globulin 2.1 g/dL (1.3-4.6) 11/03/23 18:50 TSH 1.95 uIU/mL (0.27-4.20) 11/03/23 18:50 A&P Assessment and plan (1) Intermittent atrial fibrillation: Currently the patient is in sinus rhythm. Will continue the Betapace 80 mg p.o. twice daily. EKG in the morning. (2) ICD (implantable cardioverter-defibrillator) in place: The ICD function seems appropriate. Will continue on the current management. (3) Presence of Watchman left atrial appendage closure device: Patient has not had any thromboembolic events in the recent past. (4) Nonischemic congestive cardiomyopathy: Patient is on the Entresto once twice daily. Apparently he could not tolerate the higher dose. He may continue on the current dose of this medication. (5) Chronic systolic (congestive) heart failure: Clinically appears to be decompensated. We may go ahead and do a baseline BNP. (6) CROW (obstructive sleep apnea): Continue on the current management. Plan Other problems are Neutropenia, etiology? Will do an EKG in the morning. Continue on the Betapace 80 mg p.o. twice daily. Attestations 2 Medical Necessity Statement*: Patient requires continued hospital stay for close monitoring and further management Coding Level of Care Code Acute Code for Chg Fwd Diagnoses Intermittent atrial fibrillation I48.0 ICD (implantable cardioverter-defibrillator) in place Z95.810 Presence of Watchman left atrial appendage closure device Z95.818 Nonischemic congestive cardiomyopathy I42.0 Chronic systolic (congestive) heart failure I50.22 CROW (obstructive sleep apnea) G47.33
--- NOTE | 2023-11-04 21:03 | ECG_ITS ---
[facility] Test Date: 2023-11-04 Pat Name: Dexter Dempsey Department: Room: 254 Gender: Male Grizzlyman: : 1980 Requested By: Alfredo Carroll Order Number: [id number] Krystina MD: Vadim Cruz M.D. Measurements Intervals [place] Rate: 72 P: 125 AR: 223 QRS: -42 QRSD: 97 T: 180 QT: 420 QTc: 462 Interpretive Statements ELECTRONIC ATRIAL PACEMAKER LEFT AXIS DEVIATION [QRS AXIS < -30] LOW QRS VOLTAGE IN EXTREMITY LEADS [QRS DEFLECTION < 0.5 mV IN LIMB LEADS] PATTERN CONSISTENT WITH PULMONARY DISEASE ABNORMAL QRS-T ANGLE [QRS-T AXIS DIFFERENCE > 60] Compared to ECG 11/04/2023 09:16:02 Left-axis deviation now present Low QRS voltage now present Atrial abnormality no longer present Electronically Signed On 11-05-2023 14:46:11 SURGERY CONSULTANT by Vadim Cruz M.D. [email or web address] [email or web address].[employer]/store/OM/[id number]
[2023-11-04] MEDS: aspirin 325 mg Tablet PO (21:57)
[2023-11-04] MEDS: zolpidem 5 mg Tablet 10 MG PO (21:57)
[2023-11-05] VITALS (8 sets, daily range): BP systolic 92–114; BP diastolic 58–69; PULSE 62–70; RESP 16–17; TEMP 36.5–37.1; O2SAT 96–98; BMI 37.6
[2023-11-05] MEDS: spironolactone 25 mg Tablet PO (06:09)
[2023-11-05] MEDS: sacubitril/valsartan 24-26 mg Tablet 1 EACH PO ×2 (08:56→17:14)
[2023-11-05] MEDS: finasteride 5 mg Tablet PO (08:56)
[2023-11-05] MEDS: sotalol 80 mg Tablet PO (08:57)
[2023-11-05] MEDS: TORSEmide 20 mg Tablet 40 MG PO ×2 (08:58→17:14)
[2023-11-05] MEDS: metoprolol tartrate 50 mg Tablet 100 MG PO (08:58)
[2023-11-05] MEDS: potassium chloride ER 20 mEq Tablet 40 MEQ PO ×2 (08:58→17:14)
--- NOTE | 2023-11-05 10:00 | ECG_ITS ---
[facility] Test Date: 2023-11-05 Pat Name: Dexter Dempsey Department: Room: 254 Gender: Male Bed Laster: : 1980 Requested By: Alfredo Carroll Order Number: [id number] Krystina MD: Vadim Cruz M.D. Measurements Intervals [place] Rate: 69 P: -48 TN: 231 QRS: 105 QRSD: 97 T: 240 QT: 426 QTc: 459 Interpretive Statements ELECTRONIC ATRIAL PACEMAKER PATTERN CONSISTENT WITH PULMONARY DISEASE POSSIBLE RIGHT VENTRICULAR HYPERTROPHY [SOME/ALL OF: PROMINENT R IN V1, LATE TRANSITION, RAD, SULTANA, SSS] ABNORMAL QRS-T ANGLE [QRS-T AXIS DIFFERENCE > 60] Compared to ECG 11/04/2023 21:13:31 Atrial abnormality now present Left-axis deviation no longer present Electronically Signed On 11-05-2023 14:50:49 MIDDLE SCHOOL MATH TEACHER by Vadim Cruz M.D. [email or web address] [facility].[employer]/store/NU/[id number] f
[2023-11-05 13:32] LABS: Eosinophils # 0.1 10^3/uL (0.0-0.8); Eosinophils % 4.2 %; Hematocrit 45.4 % (37-53); Lymphocytes # 1.4 10^3/uL (0.8-4.8); Lymphocytes % 43.5 %; Mean Corpuscular HGB Conc 34.4 g/dL (30-55); Mean Corpuscular Hemoglobin 29.4 pg (27-33); Mean Corpuscular Volume 85.5 fl (82-101); Mean Platelet Volume 9.5 fL (7.4-10.4); Monocytes % 32.3 %; Neutrophils % 18.7 %; Nucleated Red Blood Cells % 0 %; Platelet Count 148 10^3/cmm (157-399); Red Blood Count 5.31 10^6/uL (3.85-5.65); Red Cell Distribution Width 13.8 % (12.1-15.1); White Blood Count 3.13 10^3/uL (3.29-11.43)
[2023-11-05 13:40] LABS: Neutrophils # 0.59 10^3/uL (1.8-7.7)
--- NOTE | 2023-11-05 15:37 | ECG_ITS ---
[facility] Test Date: 2023-11-05 Pat Name: Dexter Dempsey Department: Room: 254 Gender: Male Gold Leaf Roller: : 1980 Requested By: Alfredo Carroll Order Number: [id number] Krystina MD: Alfredo Carroll M.D. Measurements Intervals [place] Rate: 71 P: -47 [place]: 232 QRS: 97 QRSD: 100 T: 241 QT: 418 QTc: 454 Interpretive Statements ELECTRONIC ATRIAL PACEMAKER. Occasional PVCs BORDERLINE RIGHT AXIS DEVIATION [QRS AXIS > 90] LOW QRS VOLTAGE IN EXTREMITY LEADS [QRS DEFLECTION < 0.5 mV IN LIMB LEADS] PATTERN CONSISTENT WITH PULMONARY DISEASE ABNORMAL QRS-T ANGLE [QRS-T AXIS DIFFERENCE > 60] Compared to ECG 11/05/2023 08:50:20 Low QRS voltage now present Atrial abnormality no longer present Electronically Signed On 11-06-2023 17:30:39 INTEGRITY MANAGER by Alfredo Carroll M.D. [email or web address] Internationalmymich[facility].[employer]/store/OM/[id number]
[2023-11-05] MEDS: enoxaparin 40 mg/0.4 mL Syringe SUBCUT (16:31)
--- NOTE | 2023-11-05 17:40 | PC.NURSE ---
Discharge Note Patient discharged to home via private vehicle accompanied by self. Discharge instructions reviewed with patient and/or customer retention representative. Mobile pharmacy medications and/or prescriptions provided. Belongings/home medications returned.
--- NOTE | 2023-11-05 17:42 | PM.DCS ---
Discharge Providers Date of Admission: 11/03/23 15:31 Date of Discharge: November 05, 2023 Attending Provider at Admission: Alfredo Carroll MD Attending Provider at Discharge: Alfredo Carroll MD Consults: None Primary Care Provider: Timmy Trent MD Diagnoses at Discharge Discharge Diagnosis (1) Intermittent atrial fibrillation: Details from hospital stay: Patient remained in sinus rhythm/demand paced AV rhythm, throughout the hospital course. Occasional PVCs are noted on the monitor. The lead test QTc was 454. Patient tolerated Betapace so far well. We continue on the metoprolol as well . The blood pressure stayed in the normal/near normal range Status: Acute (2) ICD (implantable cardioverter-defibrillator) in place: Details from hospital stay: Patient did not have any ICD discharges. Status: Acute Permanent problem details: Patient has Evera MRI XT DR ICD. It is programmed for AAI/DDD (3) Presence of Watchman left atrial appendage closure device: Details from hospital stay: Has not had any thromboembolic events. Status: Acute (4) Nonischemic congestive cardiomyopathy: Details from hospital stay: Normal cardiac decompensation. The BNP at the baseline was around 1700. Status: Acute (5) Chronic systolic (congestive) heart failure: Details from hospital stay: As mentioned above. Status: Acute (6) CROW (obstructive sleep apnea): Details from hospital stay: Patient is on HGNS Status: Acute Permanent problem details: Has hypoglossal nerve stimulator HGNS Other Information Additional DC diagnoses/information: He has a white cell count was found to be low, 2.75 at the time of admission and 3.15 today. He has no signs of infection. Advised to have further evaluation with the primary care provider Reason for Visit Reason for Visit: 254 - 2 Brief History: Patient was mainly admitted to the hospital for the initiation of the high risk medication, Betapace Hospital Course Hospital Course Patient tolerated the procedure Very well. He did not have any side effects of the medication. The QTc was within normal limits. Physical Exam Narrative: GENERAL: The patient is alert and oriented times three. Not in any acute distress. HEENT: No significant pallor, icterus or lymphadenopathy.Oral cavity: There are no mucous membrane lesions. NECK: Trachea appears to be central. No masses noted. No JVD or thyromegaly appreciated. RESPIRATORY: Chest is symmetrical. No intercostals muscle retraction or any accessory muscle activation. There is no chest wall tenderness. Breath sounds are heard bilaterally. No rales or rhonchi heard. No evidence of any consolidation. BREASTS: Deferred. HEART: The heart sounds are normal. No S3 or S4. No significant murmurs. No pericardial rub ABDOMEN: No vessel pulsations or distention. No tenderness. No organomegaly appreciated. Bowel sounds are normally heard. : Deferred. RECTAL: Deferred. LYMPHATIC: No lymphadenopathy noted in the neck. EXTREMITIES: No edema or cyanosis. No clubbing. MUSCULOSKELETAL: No acute joint deformities or swelling SKIN: There are no significant rashes or ecchymosis NEUROPSYCHIATRIC: The patient is alert and oriented x3. Appears to be in a good mood. No tremors or rigidity noted. Discharge Data Studies Completed and Pending Laboratory Results WBC 3.13 10^3/uL (3.29-11.43) L 11/05/23 13:11 RBC 5.31 10^6/uL (3.85-5.65) 11/05/23 13:11 Hgb 15.60 g/dL (11.27-16.99) 11/05/23 13:11 Hct 45.4 % (37-53) 11/05/23 13:11 MCV 85.5 fl (82-101) 11/05/23 13:11 MCH 29.4 pg (27-33) 11/05/23 13:11 MCHC 34.4 g/dL (30-55) 11/05/23 13:11 RDW 13.8 % (12.1-15.1) 11/05/23 13:11 Plt Count 148 10^3/cmm (157-399) L 11/05/23 13:11 MPV 9.5 fL (7.4-10.4) 11/05/23 13:11 Neut % (Auto) 18.7 % 11/05/23 13:11 Lymph % (Auto) 43.5 % 11/05/23 13:11 [place] % (Auto) 32.3 % 11/05/23 13:11 Eos % (Auto) 4.2 % 11/05/23 13:11 Baso % (Auto) 1.0 % 11/05/23 13:11 Neut # (Auto) 0.59 10^3/uL (1.8-7.7) L* 11/05/23 13:11 Lymph # (Auto) 1.4 10^3/uL (0.8-4.8) 11/05/23 13:11 [place] # (Auto) 1.0 10^3/uL (0.2-0.9) H 11/05/23 13:11 Eos # (Auto) 0.1 10^3/uL (0.0-0.8) 11/05/23 13:11 Baso # (Auto) 0.0 10^3/uL (0.0-0.1) 11/05/23 13:11 Nucleated RBC % (auto) 0 % 11/05/23 13:11 Nucleated RBCs # 0.0 /100WBC 11/05/23 13:11 Sodium 140 mmol/L (136-145) 11/03/23 18:50 Potassium 3.8 mmol/L (3.5-5.1) 11/03/23 18:50 Chloride 107 mmol/L (98-107) 11/03/23 18:50 Carbon Dioxide 20 mmol/L (22-29) L 11/03/23 18:50 Anion Gap 16.8 (5-19) 11/03/23 18:50 BUN 20 mg/dL (6-20) 11/03/23 18:50 Creatinine 0.8 mg/dL (0.7-1.2) 11/03/23 18:50 GFR Calculation 104.5 mL/min (90-130) 11/03/23 18:50 Glucose 133 mg/dL (65-115) H 11/03/23 18:50 Calculated Osmolality 295 mOsm/kg (285-295) 11/03/23 18:50 Calcium 8.6 mg/dL (8.5-10.5) 11/03/23 18:50 Magnesium 2.2 mg/dL (1.7-2.3) 11/03/23 18:50 Total Bilirubin 0.4 mg/dL (0.15-1.2) 11/03/23 18:50 AST 5 U/L (0-40) 11/03/23 18:50 ALT < 5 U/L (0-41) 11/03/23 18:50 Alkaline Phosphatase 75 U/L (40-130) 11/03/23 18:50 NT-Pro-B Natriuret Pep 1762 pg/mL (0-125) H 11/03/23 18:50 Total Protein 6.4 g/dL (6.6-8.7) L 11/03/23 18:50 Albumin 4.3 g/dL (3.5-5.2) 11/03/23 18:50 Globulin 2.1 g/dL (1.3-4.6) 11/03/23 18:50 TSH 1.95 uIU/mL (0.27-4.20) 11/03/23 18:50 Procedures Performed EKGs Vitals Last Vital Signs Temp 98.1 F 11/05/23 16:00 Pulse 70 11/05/23 16:00 Resp 17 11/05/23 16:00 BP 104/69 11/05/23 16:00 Pulse Ox 98 11/05/23 16:00 O2 Del Method Room Air 11/05/23 03:11 Discharge Plan Discharge Patient Disposition: Home Condition: Stable Prescriptions: New sotalol 80 mg Tablet 80 mg PO BID@0900,2100 30 Days Qty: 60 0RF Continued zolpidem [Ambien] 10 mg tablet 10 mg PO BEDTIME finasteride 5 mg tablet 5 mg PO DAILY febuxostat [Uloric] 40 mg tablet 40 mg PO QAM diazepam 5 mg tablet 5 mg PO DAILY PRN (Reason: Anxiety) potassium chloride 20 mEq tablet extended release 40 meq PO BID torsemide 20 mg tablet 40 mg PO BID aspirin 325 mg tablet 325 mg PO BEDTIME spironolactone 25 mg tablet 25 mg PO QAM topiramate 50 mg tablet 50 mg PO BID 30 Days Qty: 60 0RF tizanidine 4 mg tablet 4 mg PO BID PRN (Reason: muscle spasticity) Qty: 60 0RF gabapentin 600 mg tablet 600 mg PO TID Qty: 90 0RF metoprolol succinate 50 mg Tablet Extended Release 24 Hr 100 mg PO BID tadalafil 5 mg Tablet 10 mg PO DAILY PRN (Reason: Erectile Dysfunction) cholecalciferol (vitamin D3) 1,250 mcg (50,000 unit) capsule 50,000 unit PO Q7D Rx Instructions: on thursday Entresto 24-26 mg tablet 1 tab PO BID multivitamin Tablet 1 tab PO DAILY dapagliflozin propanediol [Farxiga] 10 mg Tablet 10 mg PO QAM prednisone 20 mg tablet 20 mg PO TID Qty: 15 0RF Rx Instructions: 1 p.o. 3 times daily x3 days, 1 p.o. twice daily x2 days, 1 p.o. daily x2 days ibuprofen 600 mg 600 mg PO BEDTIME Discharge Orders: Discharge Order (Routine); Ordered 11/05/23 Ordered By: Alfredo Carroll Referrals: Alfredo Carroll MD [Physician] - (We have notified your physician's clinic of the need for a follow-up appointment to be scheduled. If you have not heard from them within the next 2 business days, please call them directly. ) Timmy Trent MD [Primary Care Provider] - 4-7 days (We have notified your physician's clinic of the need for a follow-up appointment to be scheduled. If you have not heard from them within the next 2 business days, please call them directly. ) Discharge Diet: Advance as tolerated Discharge Activity: Resume usual activity Patient Instructions: Sotalol (By mouth) (Betapace, Betapace AF, Sorine, Sotylize), Heart Failure (GEN), A-fib (Atrial Fibrillation) (GEN), CHF Stoplight, Opioid Safety Activity Restrictions/Additional Instructions: appt at the [facility] next week for an EKG Discharge Attestations Time Spent in Discharge Care*: less than 30 min Quality Metrics Clinical Quality Measures [ No reported AMI, CVA or VTE this stay] Coding Level of Care Code Acute Code for Chg Fwd Diagnoses Intermittent atrial fibrillation I48.0 ICD (implantable cardioverter-defibrillator) in place Z95.810 Presence of Watchman left atrial appendage closure device Z95.818 Nonischemic congestive cardiomyopathy I42.0 Chronic systolic (congestive) heart failure I50.22 CROW (obstructive sleep apnea) G47.33
== END 2023-11-05 18:09 | disposition home or self-care (01) | DRG 309 ==
PROVIDERS: Admitting Provider Internal Medicine Cardiovascular Disease; PCP Family Medicine; Visit Provider Internal Medicine Cardiovascular Disease
DX: I48.20 Chronic atrial fibrillation, unspecified (principal); I50.22 Chronic systolic (congestive) heart failure; I42.8 Other cardiomyopathies; I11.0 Hypertensive heart disease with heart failure; G47.33 Obstructive sleep apnea (adult) (pediatric); E66.9 Obesity, unspecified; E78.5 Hyperlipidemia, unspecified; F41.9 Anxiety disorder, unspecified; M10.9 Gout, unspecified; Z79.82 Long term (current) use of aspirin; Z95.810 Presence of automatic (implantable) cardiac defibrillator; Z68.37 Body mass index [BMI] 37.0-37.9, adult; Z86.010 Personal history of colon polyps; Z98.84 Bariatric surgery status
CPT/HCPCS: 36415; 80053; 83735; 83880; 84443; 85025; 93005; 96372; J1650

== ENCOUNTER 2023-11-09 19:57 | Outpatient (CLI) | payer MEDICAID, SELFPAY ==
[2023-11-09 20:17] LABS: Hematocrit 42.6 % (37-53); Mean Corpuscular HGB Conc 34.3 g/dL (30-55); Mean Corpuscular Hemoglobin 29.3 pg (27-33); Mean Corpuscular Volume 85.4 fl (82-101); Platelet Count 147 10^3/cmm (157-399); Red Blood Count 4.99 10^6/uL (3.85-5.65); Red Cell Distribution Width 13.8 % (12.1-15.1); White Blood Count 3.03 10^3/uL (3.29-11.43)
[2023-11-09 21:09] LABS: Lymphocytes 64 %; Total Cells Counted 100 (0-100)
[2023-11-09 21:10] LABS: Absolute Eosinophils 0.1 10^3/cmm (0.0-0.7); Eosinophils 3 %; Monocytes Absolute 0.5 10^3/cmm (0.1-0.6); Platelet Estimate Decreased (Normal)
[2023-11-09 21:13] LABS: Absolute Segmented Neutrophil 0.5 10/cmm (1.6-7.1); Segmented Neutrophils 15 %
== END 2023-11-09 19:58 | disposition home or self-care (01) ==
PROVIDERS: PCP Family Medicine; Visit Provider Internal Medicine Cardiovascular Disease
DX: I50.22 Chronic systolic (congestive) heart failure (principal); I48.0 Paroxysmal atrial fibrillation
CPT/HCPCS: 36415; 85007; 85027

== ENCOUNTER → 2023-11-12 14:27 | Outpatient (BNVA) | payer MEDICAID, SELFPAY | PROVIDERS: PCP Family Medicine; Visit Provider Nurse Practitioner Family | DX: I48.0 Paroxysmal atrial fibrillation (principal); Z95.810 Presence of automatic (implantable) cardiac defibrillator; Z95.0 Presence of cardiac pacemaker | CPT/HCPCS: 93005 ==

== ENCOUNTER 2024-02-28 16:26 | Emergency (ER) | payer BC, MEDICAID, SELFPAY ==
[2024-02-28 16:39] VITALS: BP 110/72; PULSE 75; RESP 18; TEMP 36.7; O2SAT 98
--- NOTE | 2024-02-28 16:45 | ECG_ITS ---
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 Measurements Intervals [place] Rate: 81 P: 240 AR: 363 QRS: 107 QRSD: 101 T: 59 QT: 371 QTc: 432 Interpretive Statements ELECTRONIC ATRIAL PACEMAKER POSSIBLE RIGHT VENTRICULAR HYPERTROPHY [SOME/ALL OF: PROMINENT R IN V1, LATE TRANSITION, RAD, SULTANA, SSS] Compared to ECG 11/12/2023 14:37:05 Atrial abnormality now present Right-axis deviation no longer present Heavy baseline artifact, need to repeat Electronically Signed On 02-28-2024 21:06:47 CDT by Alfredo Carroll M.D. [email or web address]
--- NOTE | 2024-02-28 17:18 | XRR_ITS ---
PROCEDURE INFORMATION: Exam: XR Chest Exam date and time: 02/28/2024 5:40 PM Age: 43 years old Clinical indication: Dyspnea; Prior surgery; Surgery date: 3-7 days post-operative; Surgery type: Stimulator placement; Additional info: Shortness of breath TECHNIQUE: Imaging protocol: Radiologic exam of the chest. Views: 1 view. COMPARISON: CR XR chest 2V* [id number] 07/29/2021 7:59 AM FINDINGS: Lungs: No focal consolidation. Pleural spaces: No evidence of pneumothorax. No evidence of pleural effusion. Heart/Mediastinum: Cardiomediastinal silhouette is within normal limits. Left subclavian approach dual-chamber pacemaker ICD. Device projects over the right hemithorax with lead coursing cephalad. A 2nd right-sided device projects over the axilla with lead/catheter coursing inferiorly. Bones/joints: No evidence of acute osseous abnormality. XR/XR chest 1V portable [id number] IMPRESSION: 1. No acute cardiopulmonary abnormality.
--- NOTE | 2024-02-28 17:18 | USR_ITS ---
PROCEDURE INFORMATION: Exam: US Duplex Bilateral Extracranial Arteries; Complete; Carotid Arteries Exam date and time: 02/28/2024 6:28 PM Age: 43 years old Clinical indication: Other: Surgical site pain swelling; Prior surgery; Surgery date: Post-operative (0-2 days); Surgery type: Surgically implanted stimulator device in his carotid per patient. This area is swollen and painful. ; Additional info: Has surgically implanted device. Swelling R/O abscess etc TECHNIQUE: Imaging protocol: Real-time duplex ultrasound scan of the bilateral extracranial arteries combining broussard scale, color Doppler and spectral waveform analysis with image documentation. Complete exam. Exam focused on the carotid arteries. COMPARISON: CT neck w con* [id number] 02/28/2024 7:48 PM FINDINGS: Right common carotid artery: Unremarkable. No occlusion or stenosis. Waveforms are normal. Right internal carotid artery: Unremarkable. No occlusion or stenosis. Waveforms are normal. Right ICA/CCA ratio: Within normal limits. Right external carotid artery: No stenosis in the origin. Right vertebral artery: Unremarkable. Antegrade flow. Left common carotid artery: Unremarkable. No occlusion or stenosis. Waveforms are normal. Left internal carotid artery: Unremarkable. No occlusion or stenosis. Waveforms are normal. Left ICA/CCA ratio: Within normal limits. Left external carotid artery: No stenosis in the origin. Left vertebral artery: Unremarkable. Antegrade flow. Other findings: No fluid collection in the interrogated areas. US/CV carotid duplex BI* [id number] IMPRESSION: No carotid arterial stenosis. REFERENCES: SRU CRITERIA. The degree of internal carotid artery stenosis is based on criteria defined by the Society of Radiologists in Ultrasound (SRU). Normal is no stenosis. Mild is less than 50% stenosis. Moderate is 50-69% stenosis. Severe is greater than 69% stenosis to near occlusion. Near occlusion is a markedly narrowed lumen. Total occlusion is no detectable patent lumen.
[2024-02-28 17:31] VITALS: BP 104/69; PULSE 73; RESP 15; O2SAT 98
[2024-02-28 17:51] LABS: Basophils % 0.3 %; Eosinophils # 0.3 10^3/uL (0.0-0.8); Eosinophils % 2.3 %; Hematocrit 41.2 % (37-53); Lymphocytes # 1.8 10^3/uL (0.8-4.8); Mean Corpuscular HGB Conc 33.3 g/dL (30-55); Mean Corpuscular Hemoglobin 29.8 pg (27-33); Mean Corpuscular Volume 89.8 fl (82-101); Monocytes % 8.9 %; Neutrophils # 7.92 10^3/uL (1.8-7.7); Neutrophils % 72.2 %; Nucleated Red Blood Cells % 0 %; Platelet Count 183 10^3/cmm (157-399); Red Blood Count 4.59 10^6/uL (3.85-5.65); Red Cell Distribution Width 13.2 % (12.1-15.1); White Blood Count 10.95 10^3/uL (3.29-11.43)
--- NOTE | 2024-02-28 17:51 | W.ED.SOB ---
HPI - SOB/Dyspnea General: Chief Complaint: Shortness of Breath/Dyspnea Stated Complaint: SOB, hard to swallow, surgery yesterday Time Seen by Provider: 02/28/24 17:11 History of Present Illness: HPI Narrative: 43-year-old man with a history of nonischemic cardiomyopathy with a reduced EF of around 20% who presents to the emergency room with postsurgical issues. He had a carotid stimulator placed at [place] recently. He is feeling swelling in his neck. Having some trouble swallowing. Feels short of breath. He has a incision site on the right side of his neck that does have some swelling. They called his surgeon and they told him to come in for evaluation. No fevers. No cough. No altered mental status. No focal motor deficits. No chest pain. No abdominal pain. No nausea or vomiting. Further discussion they unclear what caused his congestive heart failure. They think may be a pneumonia when he was younger. No coronary disease. No drug use. Review of Systems Narrative: Constitutional symptoms: Negative except as documented in HPI. Skin symptoms: Negative except as documented in HPI. Eye symptoms: Negative except as documented in HPI. ENMT symptoms: Negative except as documented in HPI. Respiratory symptoms: Negative except as documented in HPI. Cardiovascular symptoms: Negative except as documented in HPI. Gastrointestinal symptoms: Negative except as documented in HPI. Genitourinary symptoms: Negative except as documented in HPI. Musculoskeletal symptoms: Negative except as documented in HPI. Neurologic symptoms: Negative except as documented in HPI. Psychiatric symptoms: Negative except as documented in HPI. Endocrine symptoms: Negative except as documented in HPI. [facility] ED PFSH: Medical History Insomnia Presence of Watchman left atrial appendage closure device Hypertension Obesity Hyperlipidemia CROW (obstructive sleep apnea) Has hypoglossal nerve stimulator HGNS Cardiomyopathy MRI and LGE suggestive of infiltrative cardiomyopathy. Biopsy negative for sarcoidosis, amyloid and genetic testing Biventricular heart failure Colon polyps Hemorrhoids Mural thrombus of heart History of pacemaker A-fib Anxiety CHF (congestive heart failure) Sleep apnea Gout Surgical History Hx of gastric bypass History of epidermal inclusion cyst excision (10/15/20) Perianal ICD (implantable cardioverter-defibrillator) in place (~2017) Patient has Evera MRI XT DR ICD. It is programmed for AAI/DDD History of nasal septoplasty (~2007) S/P laparoscopic sleeve gastrectomy (~2016) History of colonoscopy with polypectomy (10/15/20) 2014 With banding of hemorrhoids History of esophagogastroduodenoscopy (EGD) (~2014) Family History Father Diabetes Hypertension Cancer Mother Cancer Denies family history of CAD (coronary artery disease) Clotting disorder Dementia Chronic kidney disease (CKD) Suicide Anesthesia complication Bleeding disorder Lung disease Stroke Social History Smoking and tobacco/nicotine status: never used tobacco/nicotine Alcohol intake: never Substance/Drug Use: never Physical Exam Narrative: EXAM NARRATIVE: General: Alert, no acute distress. Skin: Warm, dry. Head: Normocephalic, atraumatic. Neck: Patient has a right-sided surgical incision that appears intact. There is fairly considerable swelling underneath this. It does not appear red or infected. Eye: Extraocular movements are intact. Ears, nose, mouth and throat: mucosa moist. Cardiovascular: Regular, Normal peripheral perfusion. Respiratory: Lungs are clear to auscultation, respirations are non-labored, breath sounds are equal, Symmetrical chest wall expansion. Gastrointestinal: Soft, Nontender, Non distended Musculoskeletal: Normal ROM, no deformity. Neurological: Alert and oriented, No focal neurological deficit observed. Psychiatric: Cooperative, appropriate mood & affect. Course Vital Signs: Vital signs: Vital Signs Temperature 98.1 F 02/28/24 16:39 Pulse Rate 85 02/28/24 20:30 Respiratory Rate 15 02/28/24 17:31 Blood Pressure 111/89 02/28/24 20:30 Pulse Oximetry 97 02/28/24 20:30 Oxygen Delivery Me thod Room Air 02/28/24 20:30 MDM - SOB/Dyspnea Medical Decision Making Medical decision making: Differential diagnosis including but not limited to and based on the above HPI, review of systems and physical exam: Concern for infection, seroma, soft tissue swelling, airway compromise. Ultrasound ordered to evaluate for seroma or abscess. CT to evaluate soft tissue and airway. Basic lab work. Orders placed to evaluate differential diagnosis based on the above differential, HPI and physical exam Chest x-ray: No acute process. No infiltrate. No pneumothorax. This was reviewed and interpreted by myself the ER physician. Patient does have devices in both chest rand. Ultrasound of the neck and soft tissue: Cyst postsurgical changes but no acute process that would indicate seroma or abscess. This was reviewed and interpreted by myself the emergency room physician. I also reviewed the radiology report. CT of the neck with contrast: Again there is postsurgical changes and soft tissue swelling but no airway compromise and no evidence of abscess or seroma. This was reviewed and interpreted by myself the emergency room physician. I also reviewed the radiology report. Lab Review: Laboratory results were reviewed and interpreted by myself the emergency room physician. Lab work is fairly unremarkable. Mild leukocytosis with a white count of 11. No anemia. Hemoglobin is 13.7. BUN and creatinine are 20 and 0.9. Glucose is 88. I reviewed the patient's medical record. Reexamination: Patient remained stable. He is been fairly anxious. I gave him a little bit of Ativan. His oxygen sats have remained at 100%. He has no stridor. No increased work of breathing. Assessment and plan: Postsurgical swelling/assessment -IV Ativan. IV Decadron. - Discharged home - Discussed findings and plan with patient. Answered any questions. - All laboratory values were reviewed and interpreted personally by myself, the ER physician - All imaging was reviewed and interpreted personally by myself, the ER physician. - Evaluation and treatment of this problem were appropriate in the emergency setting Lab Data 02/28/24 17:21 02/28/24 17:21 Labs/Radiology: Radiology Impressions Chest X-Ray 02/28/24 17:18 IMPRESSION: 1. No acute cardiopulmonary abnormality. Neck CT 02/28/24 18:50 IMPRESSION: 1. Postsurgical changes of the right lateral neck with edema and soft tissue air. No discrete fluid collection to suggest abscess or hematoma. 2. Mediastinal adenopathy. Consider dedicated CT of the chest for further evaluation. Laboratory Results WBC 10.95 10^3/uL (3.29-11.43) 02/28/24 17:21 RBC 4.59 10^6/uL (3.85-5.65) 02/28/24 17:21 Hgb 13.70 g/dL (11.27-16.99) 02/28/24 17:21 Hct 41.2 % (37-53) 02/28/24 17:21 MCV 89.8 fl (82-101) 02/28/24 17:21 MCH 29.8 pg (27-33) 02/28/24 17:21 MCHC 33.3 g/dL (30-55) 02/28/24 17:21 RDW 13.2 % (12.1-15.1) 02/28/24 17:21 Plt Count 183 10^3/cmm (157-399) 02/28/24 17:21 MPV 10.0 fL (7.4-10.4) 02/28/24 17:21 Neut % (Auto) 72.2 % 02/28/24 17:21 Lymph % (Auto) 16.0 % 02/28/24 17:21 [place] % (Auto) 8.9 % 02/28/24 17:21 Eos % (Auto) 2.3 % 02/28/24 17:21 Baso % (Auto) 0.3 % 02/28/24 17:21 Neut # (Auto) 7.92 10^3/uL (1.8-7.7) H 02/28/24 17:21 Lymph # (Auto) 1.8 10^3/uL (0.8-4.8) 02/28/24 17:21 [place] # (Auto) 1.0 10^3/uL (0.2-0.9) H 02/28/24 17:21 Eos # (Auto) 0.3 10^3/uL (0.0-0.8) 02/28/24 17:21 Baso # (Auto) 0.0 10^3/uL (0.0-0.1) 02/28/24 17:21 Nucleated RBC % (auto) 0 % 02/28/24 17:21 Nucleated RBCs # 0.0 /100WBC 02/28/24 17:21 Sodium 140 mmol/L (136-145) 02/28/24 17:21 Potassium 4.1 mmol/L (3.5-5.1) 02/28/24 17:21 Chloride 104 mmol/L (98-107) 02/28/24 17:21 Carbon Dioxide 26 mmol/L (22-29) 02/28/24 17:21 Anion Gap 14.1 (5-19) 02/28/24 17:21 BUN 20 mg/dL (6-20) 02/28/24 17:21 Creatinine 0.9 mg/dL (0.7-1.2) 02/28/24 17:21 GFR Calculation 91.3 mL/min (90-130) 02/28/24 17:21 Glucose 88 mg/dL (65-115) 02/28/24 17:21 Calculated Osmolality 292 mOsm/kg (285-295) 02/28/24 17:21 Lactic Acid 1.0 mmol/L (0.5-2.2) 02/28/24 17:21 Calcium 8.6 mg/dL (8.5-10.5) 02/28/24 17:21 Total Bilirubin 0.5 mg/dL (0.15-1.2) 02/28/24 17:21 AST 25 U/L (0-40) 02/28/24 17:21 ALT 23 U/L (0-41) 02/28/24 17:21 Alkaline Phosphatase 82 U/L (40-130) 02/28/24 17:21 C-Reactive Protein 46.1 mg/L (0.0-4.9) H 02/28/24 17:21 Total Protein 6.8 g/dL (6.6-8.7) 02/28/24 17:21 Albumin 4.1 g/dL (3.5-5.2) 02/28/24 17:21 Globulin 2.7 g/dL (1.3-4.6) 02/28/24 17:21 All radiology interpretation(s) finalized by discharge Discharge Plan Discharge Patient Disposition: Home Clinical Impression: Post surgical complication Qualifiers: Surgical complication system/body Area: skin Surgical complication type: unspecified Procedure type: non-dermatologic Qualified Code(s): L76.82 - Other postprocedural complications of skin and subcutaneous tissue Condition: Stable Prescriptions: New dexamethasone 6 mg tablet 6 mg PO DAILY 5 Days Qty: 5 0RF No Action zolpidem [Ambien] 10 mg tablet 10 mg PO BEDTIME finasteride 5 mg tablet 5 mg PO DAILY febuxostat [Uloric] 40 mg tablet 40 mg PO QAM diazepam 5 mg tablet 5 mg PO DAILY PRN (Reason: Anxiety) potassium chloride 20 mEq tablet extended release 40 meq PO BID torsemide 20 mg tablet 40 mg PO BID aspirin 325 mg tablet 325 mg PO BEDTIME spironolactone 25 mg tablet 25 mg PO QAM topiramate 50 mg tablet 50 mg PO BID 30 Days Qty: 60 0RF tizanidine 4 mg tablet 4 mg PO BID PRN (Reason: muscle spasticity) Qty: 60 0RF gabapentin 600 mg tablet 600 mg PO TID Qty: 90 0RF sotalol 80 mg tablet See Rx Instructions .ROUTE .COMPLEX Qty: 60 0RF Dose Instruction: TAKE 1 TABLET BY MOUTH TWICE DAILY AT 9 AM AND 9 PM FOR 30 DAYS Rx Instructions: TAKE 1 TABLET BY MOUTH TWICE DAILY AT 9 AM AND 9 PM FOR 30 DAYS metoprolol succinate 50 mg Tablet Extended Release 24 Hr 100 mg PO BID tadalafil 5 mg Tablet 10 mg PO DAILY PRN (Reason: Erectile Dysfunction) cholecalciferol (vitamin D3) 1,250 mcg (50,000 unit) capsule 50,000 unit PO Q7D Rx Instructions: on thursday Entresto 24-26 mg tablet 1 tab PO BID multivitamin Tablet 1 tab PO DAILY dapagliflozin propanediol [Farxiga] 10 mg Tablet 10 mg PO QAM prednisone 20 mg tablet 20 mg PO TID Qty: 15 0RF Rx Instructions: 1 p.o. 3 times daily x3 days, 1 p.o. twice daily x2 days, 1 p.o. daily x2 days ibuprofen 600 mg 600 mg PO BEDTIME Discharge Orders: Discharge ED (Routine); Ordered 02/28/24 Ordered By: Andra Bo Referrals: Timmy Trent MD [Primary Care Provider] - Discharge Diet: Advance as tolerated Discharge Activity: Increase activity as tolerated Patient Instructions: Opioid Safety, Pain Management Activity Restrictions/Additional Instructions: Please call your surgeon tomorrow for further advice. I have called in some steroid but before you fill this check with your surgeon that this is okay. Thank you for choosing [facility] for your healthcare needs today. Please realize this is an emergency room and that we are providing you with a medical screening exam and this may not be complete and all inclusive of all the testing and or work up that you may need to determine your ailment or severity of your illness. You have been screened and evaluated and felt safe for discharge. Health conditions do change or evolve sometimes and as such it is important that you follow up with your Primary Doctor to be re checked, 3-5 days is a general good time frame for follow up. You are always welcome to return to the ED for re assessment if your symptoms are worsening or you have new concerns Coding Level of Care Code ED Security Messenger for Barbara Khan
[2024-02-28 18:07] LABS: Alanine Aminotransferase 23 U/L (0-41); Albumin Level 4.1 g/dL (3.5-5.2); Alkaline Phosphatase 82 U/L (40-130); Aspartate Amino Transferase 25 U/L (0-40); Blood Urea Nitrogen 20 mg/dL (6-20); C Reactive Protein 46.1 mg/L (0.0-4.9); Calcium 8.6 mg/dL (8.5-10.5); Carbon Dioxide 26 mmol/L (22-29); Chloride 104 mmol/L (98-107); Creatinine Clr Calc Pharmacy 134.0649; Globulin 2.7 g/dL (1.3-4.6); Glomerular Filtration Rate 91.3 mL/min (90-130); Glucose 88 mg/dL (65-115); Osmolality Calculated 292 mOsm/kg (285-295); Sodium 140 mmol/L (136-145); Total Bilirubin 0.5 mg/dL (0.15-1.2); Total Protein 6.8 g/dL (6.6-8.7)
--- NOTE | 2024-02-28 18:08 | ECG_ITS ---
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 Measurements Intervals [place] Rate: 78 P: -77 KS: 360 QRS: 147 QRSD: 90 T: 153 QT: 378 QTc: 432 Interpretive Statements ELECTRONIC ATRIAL PACEMAKER Low voltage complexes Nonspecific T wave changes Baseline artifact Need to repeat the study Electronically Signed On 02-28-2024 21:09:02 CDT by Alfredo Carroll M.D. [id number]
[2024-02-28 18:10] LABS: Anion Gap 14.1 (5-19); Potassium 4.1 mmol/L (3.5-5.1)
[2024-02-28 18:17] VITALS: BP 123/73; PULSE 80; O2SAT 98
--- NOTE | 2024-02-28 18:50 | CTR_ITS ---
PROCEDURE INFORMATION: Exam: CT Neck With Contrast Exam date and time: 02/28/2024 7:48 PM Age: 43 years old Clinical indication: Mass, lump, or swelling in neck; Prior surgery; Surgery date: 3-7 days post-operative; Surgery type: Barostim implant placed 02/26/2024. Pacer; Patient HX: Patient having swelling and redness to incision site on right side of neck from barostim implant procedure on 02/26/2024. ; Additional info: Post surgical swelling TECHNIQUE: Imaging protocol: Computed tomography of the neck with contrast. Radiation optimization: All CT scans at this facility use at least one of these dose optimization techniques: automated exposure control; mA and/or kV adjustment per patient size (includes targeted exams where dose is matched to clinical indication); or iterative reconstruction. Contrast material: OMNI 350; Contrast volume: 100 ml; Contrast route: INTRAVENOUS (IV); COMPARISON: US CV carotid duplex BI* [id number] 02/28/2024 6:28 PM RADIATION DOSE METRICS: Total DLP (mGy-cm): 391.14 FINDINGS: Soft tissues: Postoperative changes of the right lateral aspect of the neck with soft tissue air and edema status post reported stimulator placement. Stimulator leads are noted terminating in the right carotid space and floor of the mouth. No evidence of fluid collection or hematoma. There is edema of the right sternocleidomastoid muscle. Multiple clips are noted in the neck on the right overlying the strap muscles. Prevertebral and retropharyngeal spaces: There is retropharyngeal edema without evidence of fluid collection or hematoma. Salivary glands: Very mild edema of the right submandibular gland. The parotid and submandibular glands are otherwise unremarkable. Pharynx: The nasopharynx, oropharynx and hypopharynx are grossly unremarkable. Larynx: The aryepiglottic folds, glottis and paraglottic soft tissues are grossly unremarkable. Thyroid: Grossly unremarkable. Trachea: The visualized upper airway is patent. Lungs: The visualized lung apices are clear. Evaluation for PE in the lung apices is limited by respiratory motion. Lymph nodes: There is mediastinal adenopathy. Vasculature: The origins of the great vessels are patent. The visualized aortic arch is unremarkable. The visualized carotid and vertebral arteries are grossly patent. The visualized internal jugular veins are patent without evidence of thrombosis. Bones/joints: No evidence of acute fracture or subluxation of the cervical spine. Moderate-severe bilateral foraminal stenosis at C5-C6 secondary to uncovertebral hypertrophy. CT/CT neck w con* [id number] IMPRESSION: 1. Postsurgical changes of the right lateral neck with edema and soft tissue air. No discrete fluid collection to suggest abscess or hematoma. 2. Mediastinal adenopathy. Consider dedicated CT of the chest for further evaluation.
[2024-02-28] MEDS: LORazepam 2 mg/mL INJ 10 mL MDV 1 MG IVP (19:33)
[2024-02-28 19:40] VITALS: BP 113/58; PULSE 86; O2SAT 100
[2024-02-28] MEDS: iohexol 350 mg/mL 500 mL Btl (per mL) IV (19:56)
[2024-02-28 20:30] VITALS: BP 111/89; PULSE 85; O2SAT 97
[2024-02-28] MEDS: dexamethasone 10 mg/mL INJ IVP (21:01)
== END 2024-02-28 21:01 | disposition home or self-care (01) ==
PROVIDERS: Emergency Provider Emergency Medicine; PCP Family Medicine
DX: L76.82 Other postprocedural complications of skin and subcutaneous tissue (principal); Z79.82 Long term (current) use of aspirin; E78.5 Hyperlipidemia, unspecified; Z95.0 Presence of cardiac pacemaker; I11.0 Hypertensive heart disease with heart failure; I50.9 Heart failure, unspecified; I43 Cardiomyopathy in diseases classified elsewhere
CPT/HCPCS: 36415; 70491; 71045; 80053; 83605; 85025; 86140; 87040; 93005; 93880; 96374; 96375; 99285; J1100; J2060; Q9967

== ENCOUNTER → 2024-05-01 10:45 | Outpatient (BNVA) | payer BC, MEDICAID, SELFPAY | PROVIDERS: PCP Family Medicine; Visit Provider Emergency Medicine | DX: R05.9 Cough, unspecified (principal) | CPT/HCPCS: 87426 ==

== ENCOUNTER 2024-05-09 11:49 | Outpatient (CLI) | payer BC, MEDICAID, SELFPAY ==
--- NOTE | 2024-05-09 | XRR_ITS ---
PROCEDURE INFORMATION: Exam: XR Chest Exam date and time: 05/09/2024 11:22 AM Age: 43 years old Clinical indication: Shortness of breath; Prior surgery; Surgery date: 6+ months; Surgery type: Implant 01/2024; Additional info: Acute bronchitis TECHNIQUE: Imaging protocol: Radiologic exam of the chest. Views: 2 views. COMPARISON: CR XR chest 1V portable [id number] 02/28/2024 5:40 PM FINDINGS: Tubes, catheters and devices: Dual lead AICD device is noted on the left. There are 2 electrical device is overlying the right chest with leads extending to the lower neck. There appears to be a watchman device overlying the left upper heart. Small linear electrical device overlies the right lower chest. Lungs: Unremarkable. No consolidation. Pleural spaces: Unremarkable. No pleural effusion. No pneumothorax. Heart/Mediastinum: Unremarkable. No cardiomegaly. Bones/joints: Unremarkable. XR/XR chest 2V* [id number] IMPRESSION: 1. No acute cardiopulmonary findings.
== END 2024-05-09 11:50 | disposition home or self-care (01) ==
LOC: RADOUTREAD 11:59
PROVIDERS: PCP Family Medicine; Visit Provider Family Medicine
DX: J20.9 Acute bronchitis, unspecified (principal)

== ENCOUNTER → 2025-06-29 12:57 | Outpatient (BNVA) | payer MEDICAID, SELFPAY | PROVIDERS: PCP Family Medicine; Visit Provider Orthopaedic Surgery | DX: M43.17 Spondylolisthesis, lumbosacral region (principal) | CPT/HCPCS: 72110 ==

== ENCOUNTER → 2025-07-04 14:27 | Outpatient (BNVA) | payer MEDICAID, SELFPAY | PROVIDERS: PCP Family Medicine; Visit Provider Internal Medicine Cardiovascular Disease | DX: R07.9 Chest pain, unspecified (principal) | CPT/HCPCS: 93005 ==

== ENCOUNTER → 2025-07-07 09:33 | Outpatient (BNVA) | payer MEDICAID, SELFPAY | PROVIDERS: PCP Family Medicine; Visit Provider Podiatrist Foot & Ankle Surgery | DX: L60.0 Ingrowing nail (principal); L60.3 Nail dystrophy | CPT/HCPCS: 99203 ==

== ENCOUNTER → 2025-07-12 08:31 | Outpatient (BNVA) | payer MEDICAID, SELFPAY | PROVIDERS: PCP Family Medicine; Visit Provider Specialist | DX: M23.8X1 Other internal derangements of right knee (principal); M25.562 Pain in left knee; M25.561 Pain in right knee | CPT/HCPCS: 73560; 73565 ==

== ENCOUNTER 2025-07-14 09:14 | Outpatient (CLI) | payer MEDICAID, SELFPAY ==
[2025-07-14 09:46] LABS: Hematocrit 44.4 % (37-53); Hemoglobin 15.20 g/dL (11.27-16.99); Mean Corpuscular HGB Conc 34.2 g/dL (30-55); Mean Corpuscular Hemoglobin 30.1 pg (27-33); Mean Corpuscular Volume 87.9 fl (82-101); Nucleated Red Blood Cells % 0 %; Platelet Count 199 10^3/cmm (157-399); Red Blood Count 5.05 10^6/uL (3.85-5.65); White Blood Count 6.21 10^3/uL (3.29-11.43)
[2025-07-14 10:16] LABS: Alanine Aminotransferase 48 U/L (0-41); Albumin Level 4.7 g/dL (3.5-5.2); Alkaline Phosphatase 81 U/L (40-130); Anion Gap 19.5 (5-19); Aspartate Amino Transferase 31 U/L (0-40); Blood Urea Nitrogen 20 mg/dL (6-20); Calcium 8.9 mg/dL (8.5-10.5); Carbon Dioxide 22 mmol/L (22-29); Chloride 104 mmol/L (98-107); Globulin 2.6 g/dL (1.3-4.6); Glucose 108 mg/dL (65-115); Osmolality Calculated 297 mOsm/kg (285-295); Potassium 3.5 mmol/L (3.5-5.1); Sodium 142 mmol/L (136-145); Total Protein 7.3 g/dL (6.6-8.7); Uric Acid 8.8 mg/dL (3.4-7.0)
[2025-07-15 07:54] LABS: Anti-Double Strand DNA AB 2 IU/mL; SM/RNP Antibodies <1.0 NEG AI (<1.0 NEG); SS-B/LA IGG <1.0 NEG AI (<1.0 NEG); Scleroderma Ab(Scl-70) Ab <1.0 NEG AI (<1.0 NEG); Ss-A/Ro Igg <1.0 NEG AI (<1.0 NEG)
== END 2025-07-14 09:15 | disposition home or self-care (01) ==
LOC: LAB 09:16
PROVIDERS: PCP Family Medicine; Visit Provider Specialist
DX: M06.4 Inflammatory polyarthropathy (principal)
CPT/HCPCS: 36415; 80053; 84550; 85025; 85651; 86140; 86200; 86225; 86235; 86431

== ENCOUNTER 2025-07-19 10:32 | Day surgery (SDC) | payer MEDICAID, SELFPAY ==
[2025-07-19 10:44] VITALS: BMI 35.5
[2025-07-19 10:50] VITALS: BP 98/72; PULSE 105; RESP 18; TEMP 36; O2SAT 97
--- NOTE | 2025-07-19 10:52 | ECG_ITS ---
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 Measurements Intervals [place] Rate: 111 P: 0 MA: 0 QRS: 112 QRSD: 99 T: 49 QT: 349 QTc: 474 Interpretive Statements ATRIAL FIBRILLATION WITH RAPID VENTRICULAR RESPONSE WITH ABERRANT CONDUCTION OR VENTRICULAR PREMATURE COMPLEXES RIGHT AXIS DEVIATION [QRS AXIS > 100] LOW QRS VOLTAGE [QRS DEFLECTION < 0.5/1.0 mV IN LIMB/CHEST LEADS] POSSIBLE ANTERIOR MYOCARDIAL INFARCTION , PROBABLY OLD [30 ms Q WAVE IN V3/V4, OR R < 0.2 mV IN V4] Compared to ECG 02/28/2024 18:08:38 Ventricular premature complex(es) now present Aberrant conduction of supraventricular beat(s) now present Right-axis deviation now present. Myocardial infarct finding now present Atrial-paced complex(es) or rhythm no longer present T-wave abnormality no longer present Electronically Signed On 07-20-2025 00:08:49 MASCARA MOLDER by Alfredo Carroll M.D. [id number]
[2025-07-19 11:26] LABS: INR 0.91 (0.8-1.2); Prothrombin Time 12.90 SECONDS (12.1-14.9)
--- NOTE | 2025-07-19 11:57 | ANES.PREANE2 ---
Pre-Anesthetic Assessment Height/Weight: Height 5 ft 11 in Weight 255 lb Temp Pulse Resp BP Pulse Ox O2 Del Method 96.8 F L 105 H 18 98/72 97 Room Air 07/19/25 10:50 07/19/25 10:50 07/19/25 10:50 07/19/25 10:50 07/19/25 10:50 07/19/25 10:50 Preop Diagnosis: A-fib with RVR Operation Date: 07/19/25 12:00 Proposed Procedures p ABDI(Not Applicable) - Alfredo Carroll MD s Cardioversion(Not Applicable) - Alfredo Carroll MD Was Beta Jamarcus taken within 24 hours: Yes Was Clonidine taken within 24 hours: N/A Last intake: Intake Last Liquid Date 07/18/25 Last Liquid Time 22:00 Last Solid Date 07/18/25 Last Solid Time 22:00 Social No alcohol and No tobacco Exam alert, oriented x 3 and clear to auscultation bilaterally Airway Submandibular: within normal limits Cervical ROM: within normal limits Mallampati: Class II Dentition: full Anesthetic Plan ASA status: 4 Anesthesia: MAC Other: No prior issues with anesthesia NPO since yesterday evening History of hypertension on metoprolol, sotalol, spironolactone, sacubitril?valsartan 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 Patient also has a Barostim device in place CROW, inspire Labs reviewed from 07/14/2025 acceptable for procedure Per chart review, echo performed earlier this year showing EF of 22% Patient has A-fib with RVR Plan for MAC anesthesia Medications/Allergies Home Medications ?Medication ?Instructions ?Recorded ?Confirmed ?Last Taken ?Type aspirin 325 mg tablet 325 mg PO BEDTIME 10/05/20 07/19/25 07/13/25 History diazepam 5 mg tablet 5 mg PO DAILY PRN Anxiety 10/05/20 07/19/25 07/10/25 History potassium chloride 20 mEq 40 meq PO BID 10/05/20 07/19/25 07/19/25 History tablet,extended release torsemide 20 mg tablet 40 mg PO BID 10/05/20 07/19/25 07/18/25 History zolpidem 10 mg tablet (Ambien) 10 mg PO BEDTIME 10/05/20 07/19/25 07/18/25 History spironolactone 25 mg tablet 25 mg PO QAM 05/13/21 07/19/25 07/19/25 History cholecalciferol (vitamin D3) 1,250 50,000 unit PO Q7D 05/28/23 07/19/25 07/10/25 History mcg (50,000 unit) capsule dapagliflozin propanediol 10 mg 10 mg PO QAM 05/28/23 07/19/25 07/18/25 History tablet (Farxiga) multivitamin 1 tab PO DAILY 05/28/23 07/19/25 07/19/25 History sacubitril 24 mg-valsartan 26 mg 1 tab PO BID 05/28/23 07/19/25 07/19/25 History tablet (Entresto) tadalafil 5 mg tablet 10 mg PO DAILY PRN Erectile 05/28/23 07/19/25 1 Week Ago History Dysfunction ~07/12/25 ibuprofen 600 mg PO BEDTIME PRN Pain 11/03/23 07/19/25 07/13/25 History semaglutide 2 mg/dose (8 mg/3 mL) 2 mg SUBCUT .week 07/04/25 07/19/25 07/08/25 History subcutaneous pen injector (Ozempic) fluticasone propionate 50 2 spray intranasal BID PRN Allergy 07/13/25 07/19/25 2 Months Ago History mcg/actuation nasal Symptoms ~05/19/25 spray,suspension (Flonase Allergy Relief) metoprolol succinate 100 mg 100 mg PO BID 07/13/25 07/19/25 07/19/25 History tablet,extended release 24 hr prednisone 20 mg tablet 20 mg PO DAILY PRN gout 07/13/25 07/19/25 1 Month Ago History ~06/18/25 sotalol 80 mg tablet 80 mg PO BID 07/18/25 07/19/25 07/19/25 History Allergies Allergy/AdvReac Type Severity Reaction Status Date / Time No Known Allergies Allergy Verified 07/19/25 10:46 [facility] Anesthesia Medical History (Updated 07/18/25 @ 06:49 by James Patel DPM) Dystrophia unguium Insomnia Presence of Watchman left atrial appendage closure device Hypertension Obesity Mixed hyperlipidemia CROW (obstructive sleep apnea) Has hypoglossal nerve stimulator HGNS Cardiomyopathy MRI and LGE suggestive of infiltrative cardiomyopathy. Biopsy negative for sarcoidosis, amyloid and genetic testing Biventricular heart failure Colon polyps Hemorrhoids Mural thrombus of heart History of pacemaker A-fib Anxiety CHF (congestive heart failure) Sleep apnea Gout Surgical History Hx of gastric bypass History of epidermal inclusion cyst excision (10/15/20) Perianal ICD (implantable cardioverter-defibrillator) in place (~2016) Patient has [employer] MRI XT DR ICD. It is programmed for AAI/DDD History of nasal septoplasty (~2007) S/P laparoscopic sleeve gastrectomy (~2016) History of colonoscopy with polypectomy (10/15/20) 2014 With banding of hemorrhoids History of esophagogastroduodenoscopy (EGD) (~2014) Family History Father Diabetes Hypertension Cancer Mother Cancer Denies family history of CAD (coronary artery disease) Clotting disorder Dementia Chronic kidney disease (CKD) Suicide Anesthesia complication Bleeding disorder Lung disease Stroke Social History Smoking and tobacco/nicotine status: never used tobacco/nicotine Alcohol intake: never Substance/Drug Use: never Data Anesthesia Coags 07/19/25 11:00 PT 12.90 INR 0.91
--- NOTE | 2025-07-19 12:05 | W.PM.OPSUD ---
Surgery/Procedure H&P Update DATE OF PROCEDURE: July 19, 2025 DATE H&P PERFORMED: 07/04/25 H&P UPDATE INFORMATION: I have reviewed H&P completed within last 30 days, I have examined patient prior to procedure and No changes to prior documentation PREOP DIAGNOSIS: AFIB/ Cardiomyopathy PRIMARY INDICATION FOR PROCEDURE: Symptomatic A-fib PLANNED PROCEDURE: Operation Date: 07/19/25 12:00 Proposed Procedures p ABDI(Not Applicable) - Alfredo Carroll MD s Cardioversion(Not Applicable) - Alfredo Carroll MD
--- NOTE | 2025-07-19 12:23 | USCV_ITS ---
Dexter Dempsey Age: 45 Gender: M : 1980 Exam Date: 07/19/2025 12:33 Ordering Phys: Alfredo Carroll MD ([email or web address]) Technologist: Exam Location: [facility] [place] Indication: card converision BP: 91 / 65 HR: Rhythm: Sinus Technical Quality: Adequate MEASUREMENTS (Male / Female) Normal Values DOPPLER TR Peak Velocity 319.0 cm/s TR Peak Gradient 40.7 mmHg Medications IV medications were administered by the anesthesia service. Please refer to the anesthesia report for details. Complications None Proc. Components The patient was brought to the ABDI examination room in a fasting state after obtaining an informed consent. The ABDI probe was passed into the posterior pharynx , mid-esophagus, distal esophagus, and gastric fundus. ABDI was performed at multiple levels. FINDINGS Left Ventricle Left-ventricular was found to be mildly dilated with a severe diffuse hypokinesia. LV ejection fraction around 20 to 25%. Right Ventricle The right ventricle appears to be mildly dilated with a slightly diminished ejection fraction. Pacemaker/defibrillator wire were noted in the right ventricle. Right Atrium Moderately dilated right atrium Left Atrium Moderately dilated left atrium IA Septum Appears to be intact with no evidence of any shunt by color-flow Doppler examination. LA Appendage The appendage occlusion device appears to be in place with no evidence of any thrombus on the atrial side Mitral Valve Mild mitral regurgitation Aortic Valve Minimally thickened aortic valve with no gross abnormalities Tricuspid Valve Moderate tricuspid regurgitation Pulmonic Valve No gross abnormalities noted Pericardium No pericardial effusion Aorta Aortic root appears to be of normal size. CONCLUSIONS Left-ventricular was found to be mildly dilated with a severe diffuse hypokinesia. LV ejection fraction around 20 to 25%. The right ventricle appears to be mildly dilated with a slightly diminished ejection fraction. Pacemaker/defibrillator wire were noted in the right ventricle. Moderately dilated right atrium. Moderately dilated left atrium. The left atrial appendage occlusive device appears to be in the intact with no evidence of any thrombus on the atrial side Minimally thickened aortic valve with no gross abnormalities. Pacemaker/defibrillator wire in the right atrial right ventricle Moderate tricuspid regurgitation with mild mitral regurgitation There is no pericardial effusion. No similar previous studies available for comparison Dr Alfredo Carroll MD [facility] (Electronically Signed) Final Date: 19 July 2025 16:05 S
[2025-07-19 13:04] VITALS: BP 93/65; PULSE 83; RESP 22; TEMP 36.2; O2SAT 100
--- NOTE | 2025-07-19 13:12 | P.OP_ITS ---
Operative Report Date of procedure: July 19, 2025 Surgeon: Alfredo Carroll MD Procedure: Electrical cardioversion report Preprocedure diagnoses: Symptomatic atrial fibrillation/nonischemic cardiomyopathy Brief history: This patient is known to have nonischemic cardiomyopathy with LV ejection fraction of around 20%. He has a history of chronic intermittent atrial fibrillation. He had multiple cardioversions in the past. He is being followed up at the heart failure clinic of the [facility] in [facility]. He had his last cardioversion a month ago. Apparently he went back into atrial fibrillation with rapid ventricular rate. His nurse anesthetist recommended a repeat cardioversion. Because of the convenience, the patient wanted to have done in our hospital. Usually requires 2 or more shocks to get the heart back into the regular rhythm, as per the patient. The procedure was performed after a ABDI. No intracardiac masses or thrombi are noted. The Watchman device was appeared to be intact Location of the procedure: GI Lab Electrode application: Dustin-posterior .the anterior defibrillation patch was placed chest in the left inframammary region to avoid proximity to the hypog lossal nerve stimulator. Electrical energy applied: 200 J of biphasic Number of shocks: Single Final rhythm: Normal sinus Final blood pressure: 108/70 Complications: None Recommendation(s): Continue on the current medication. Will have follow-up appoint with the electrophysiology at the [facility] in [place]
[2025-07-19 13:19] VITALS: BP 93/71; PULSE 89; RESP 18; O2SAT 94
--- NOTE | 2025-07-19 13:23 | ECG_ITS ---
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 Measurements Intervals [place] Rate: 91 P: 68 AK: 196 QRS: 117 QRSD: 108 T: 86 QT: 387 QTc: 477 Interpretive Statements SINUS RHYTHM WITH OCCASIONAL VENTRICULAR PREMATURE COMPLEXES RIGHT AXIS DEVIATION [QRS AXIS > 100] LOW QRS VOLTAGE [QRS DEFLECTION < 0.5/1.0 mV IN LIMB/CHEST LEADS] PATTERN CONSISTENT WITH PULMONARY DISEASE Compared to ECG 07/19/2025 10:59:48 Atrial fibrillation no longer present Aberrant conduction of supraventricular beat(s) no longer present Myocardial infarct finding no longer present Electronically Signed On 07-20-2025 00:07:49 MANAGER OF REVENUE by Alfredo Carroll M.D. [id number]
[2025-07-19 13:40] VITALS: BP 93/68; PULSE 86; RESP 18; O2SAT 97
--- NOTE | 2025-07-19 14:10 | ANE.PACU2 ---
Inpatient post-anesthesia follow up: Airway intact: Yes Vital signs: Temperature 97.1 F Pulse Rate 86 Respiratory Rate 18 Blood Pressure 93/68 Pulse Oximetry 97 Oxygen Delivery Me thod Room Air Oxygen Flow Rate Fraction of Inspir ed Oxygen Hydration adequate: Yes Nausea and vomiting: No Pain level: 1 Mental status: Baseline
== END 2025-07-19 14:10 | disposition home or self-care (01) ==
PROVIDERS: PCP Family Medicine; Visit Provider Internal Medicine Cardiovascular Disease
PROC: (CPT 93312; principal; 2025-07-19 12:00)
PROC: 5A2204Z Restoration of Cardiac Rhythm, Single (ICD-10-PCS; 2025-07-19 12:00)
DX: I48.0 Paroxysmal atrial fibrillation (principal); I34.0 Nonrheumatic mitral (valve) insufficiency; I07.1 Rheumatic tricuspid insufficiency; I35.8 Other nonrheumatic aortic valve disorders; I51.7 Cardiomegaly; I50.82 Biventricular heart failure; G47.33 Obstructive sleep apnea (adult) (pediatric); Z79.82 Long term (current) use of aspirin; E66.9 Obesity, unspecified; Z68.35 Body mass index [BMI] 35.0-35.9, adult; E78.2 Mixed hyperlipidemia; Z95.0 Presence of cardiac pacemaker; F41.9 Anxiety disorder, unspecified
CPT/HCPCS: 36415; 36416; 82962; 85610; 92960; 93005; 93312; 93320; 93325; J2250; J2704; J3010; J7030; J9999

== ENCOUNTER 2025-07-28 06:12 | Outpatient (CLI) | payer MEDICAID, SELFPAY ==
--- NOTE | 2025-07-28 06:15 | USCV_ITS ---
Dexter Dempsey Age: 45 Gender: M : 1980 Exam Date: 07/28/2025 06:41 Ordering Phys: Alfredo Carroll MD ([email or web address]) Technologist: ROSETTA Exam Location: [facility] [place] Indication: dilated cardiomyopathy BP: 93 / 66 HR: 84 Rhythm: Atrial fibrillation Technical Quality: Adequate MEASUREMENTS (Male / Female) Normal Values 2D ECHO LV Diastolic Diameter PLAX 5.9 cm 4.2 - 5.9 / 3.9 - 5.3 cm IVS Diastolic Thickness 0.8 cm 0.6 - 1.0 / 0.6 - 0.9 cm IVS Systolic Thickness 0.9 cm LVPW Diastolic Thickness 0.7 cm 0.6 - 1.0 / 0.6 - 0.9 cm LVPW Systolic Thickness 1.0 cm LVOT Diameter 2.0 cm LV Ejection Fraction 2D Teich 25.8 % LV Ejection Fraction MOD 4C 22.7 % LV Ejection Fraction MOD 2C 32.3 % LV Ejection Fraction 2C AL 32.9 % LA Diameter 4.7 cm RA Systolic Volume 4C AL 73.0 ml RA Systolic Volume 4C MOD 73.1 ml LA Sys Volume AL 91.3 cm cubed LA Sys Volume Index AL 37.2 cm cubed/m squared Aorta at Sinotubular Diameter 2.1 cm IVC Diameter 1.5 cm M-MODE LA Ao Ratio MM 1.7 AV Cusp Separation MM 1.8 cm DOPPLER AV Peak Velocity 80.7 cm/s LVOT Peak Velocity 60.0 cm/s AV Area Cont Eq vti 3.2 cm squared AV Area Cont Eq pk 2.4 cm squared MV Peak Velocity 94.0 cm/s MV Area PHT 8.5 cm squared Mitral E to A Ratio 559.0 TV Peak Velocity 366.0 cm/s TR Peak Velocity 375.0 cm/s TR Peak Gradient 56.3 mmHg TR Mean Velocity 290.0 cm/s TR Mean Gradient 36.8 mmHg TR Velocity Time Integral 127.7 cm PV Peak Velocity 86.0 cm/s RV Ejection Time 0.3 s FINDINGS Left Ventricle Mild left ventricular enlargement. Moderate to severe left ventricular systolic dysfunction with global hypokinesis and ejection fraction of 32%. Septal flattening consistent with right ventricular pressure overload. Normal left ventricular wall thickness. Normal left ventricular diastolic function. Right Ventricle Mild right ventricular enlargement. Mild right ventricular hypokinesis. Pacemaker wire seen in the right ventricle. Right Atrium Mild right atrial enlargement Left Atrium Mild left atrial enlargement IA Septum Normal appearance of the interatrial septum. Mitral Valve Mild mitral valve regurgitation.Normal mitral valve structure. No mitral valve stenosis or regurgitation. Aortic Valve Normal aortic valve structure. No aortic valve stenosis or regurgitation. Tricuspid Valve Mild to moderate tricuspid valve regurgitation. Moderate pulmonary hypertension. Pulmonary artery systolic pressure 60 mmHg. Pulmonic Valve Mild pulmonic valve regurgitation. Pericardium No pericardial effusion. Aorta Normal diameter of the aortic root and ascending thoracic aorta. IVC Normal IVC diameter. CONCLUSIONS Mild left ventricular enlargement. Moderate to severe left ventricular systolic dysfunction with global hypokinesis and ejection fraction of 32%. Septal flattening consistent with right ventricular pressure overload. Mild right ventricular enlargement. Mild right ventricular hypokinesis. Pacemaker wire seen in the right ventricle. Mild to moderate tricuspid valve regurgitation. Moderate pulmonary hypertension. Pulmonary artery systolic pressure 60 mmHg. Compared to transesophageal echocardiogram on 07/19/2025, the ejection fraction has mildly improved from 20 to 25% to 32%. Javan Mcintosh MD, FACC (Electronically Signed) Final Date: 28 July 2025 15:23 S
== END 2025-07-28 06:13 | disposition home or self-care (01) ==
LOC: RAD 06:14
PROVIDERS: PCP Family Medicine; Visit Provider Internal Medicine Cardiovascular Disease
DX: I42.0 Dilated cardiomyopathy (principal); I48.91 Unspecified atrial fibrillation; Z95.0 Presence of cardiac pacemaker; I36.1 Nonrheumatic tricuspid (valve) insufficiency; I27.20 Pulmonary hypertension, unspecified
CPT/HCPCS: 93306

== ENCOUNTER 2025-08-07 09:30 | Outpatient (CLI) | payer MEDICAID, SELFPAY | END 2025-08-07 09:31 | LOC: LAB 08-10 07:07 | PROVIDERS: PCP Family Medicine; Visit Provider Internal Medicine Rheumatology | DX: M05.79 Rheumatoid arthritis with rheumatoid factor of multiple sites without organ or systems involvement (principal); R76.89 Other specified abnormal immunological findings in serum; M43.17 Spondylolisthesis, lumbosacral region; Z79.899 Other long term (current) drug therapy; M1A.09X0 Idiopathic chronic gout, multiple sites, without tophus (tophi); I42.8 Other cardiomyopathies | CPT/HCPCS: 36415; 80076; 82306; 82565; 85025; 85651; 86140; 86160; 86162; 86235; 86255; 86376; 86480; 86704; 86803; 87340; 99205 ==